=== PATIENT | male | born 1945 | race Caucasian/White ===

== ENCOUNTER 2017-11-29 22:13 | Inpatient (IN) | payer MEDICAID, MEDICARE ==
[~2017-11-29] VITALS: Ht 185.4 cm; Wt 69.9 kg
[~2017-11-29 22:13] MED LIST: ASPI-1169 PO; ATOR20TA PO; CALC500T13 PO; FOLI1TAB16 PO; HYDR-3976 PO; ISOS60TA4 PO; LEVO750T46 PO; METO25TA6 PO; MULT1TAB73 PO; PANT40TA2 PO; THIA100V2 PO
[2017-11-29] MEDS ORDERED: ASPIRIN 325 MG TABLET PO ONE (22:30)
--- NOTE | 2017-11-29 22:30 | NUR ---
PT BB SELF C/C LT HAND TO LT SIDE NUMBNESS S/P CVA X JUN 2017, GETTING WORSE X2-3 DAYS. PT ALSO STATES INTERMITTENT LT SIDE CP X 8 DAYS, SEEN AT [facility] 11/26/17 FOR SAME S/S. PT STATES INTERMITTENT CP 12/27 -N/V, -DIAPHORESIS. PT STATES CP IS PRESSURE LIKE IN QUALITY. PT NOTED TO BE TACHYCARDIC AT 124BPM. PT STATES "I AM SHORT OF BREATH. NC 3L/M APPLIED TO PT PER MD. SPO2 96% ON RA. PT SAFETY AND COMOFRT MEASURES IN PLACE. RESP EVEN AND UNLABORED. NO S/S OF ACUTE DISTRESS NOTED. MD BEDSIDE FOR EVAL.
[2017-11-29] MEDS ORDERED: NITROGLYCERIN 0.4 MG/TAB BOTTLE ONE (22:40)
[2017-11-29] MEDS ORDERED: ASPIRIN 325 MG TABLET ONE (22:40)
--- NOTE | 2017-11-29 22:44 | NUR ---
PT REFUSED NITROGLYCERINE TABS STATING "IT MAKES ME VERY ILL AND I AM ALLERGIC TO IT". PT'S REFUSAL OF MEDICATION WAS MADE AWARE TO DR COLLIER. WILL CONTINUE TO MONITOR PT.
[2017-11-29 22:46] LABS: BASOPHILS # (AUTO) 0.1 /CMM (0.0-0.2); BASOPHILS % (AUTO) 0.7 % (0.0-2.0); EOSINOPHILS % (AUTO) 4.1 % (0.0-6.0); HEMATOCRIT 44 % (39-51); HEMOGLOBIN 14.3 g/dL (13.5-17.5); LYMPHOCYTES % (AUTO) 20.4 % (20.0-44.0); MEAN CORPUSCULAR HGB CONC 33 g/dl (31.0-36.0); MEAN CORPUSCULAR VOLUME 99 fL (80-96); MONOCYTES # (AUTO) 0.8 /CMM (0.1-1.30); MONOCYTES % (AUTO) 7.8 % (2.0-12.0); NEUTROPHILS # (AUTO) 6.7 /CMM (1.8-8.9); PLATELET COUNT (AUTO) 188 /CMM (150-450); RDW COEFFICIENT OF VARIATION 14.1 (11.5-15.0); RED BLOOD CELL COUNT(AUTO) 4.43 MIL/uL (4.5-6.0)
[2017-11-29] MEDS ORDERED: NITROGLYCERIN 0.4 MG/TAB BOTTLE SL ONE (23:00)
[2017-11-29] MEDS ORDERED: hydrALAZINE HCL IV 20 MG VIAL IV ONE (23:00)
--- NOTE | 2017-11-29 23:01 | NUR ---
Patient going to Tele 119-1, admitted by OMAR Rivera, dx Chest Pain
[2017-11-29 23:02] LABS: CARBON DIOXIDE 25 mmol/L (21-32); CHLORIDE 108 mmol/L (98-107); CREATININE 1.5 mg/dL (0.6-1.3); GLUCOSE 111 mg/dL (74-106); SODIUM SERUM 141 mmol/L (136-145); UREA NITROGEN, BLOOD 14 mg/dL (7-18)
[2017-11-29 23:06] LABS: INR 0.98 (0.87-1.13)
[2017-11-29 23:10] LABS: TROPONIN I 0.075 ng/mL (0.00-0.056)
[2017-11-29 23:14] LABS: B-TYPE NATRIURETIC PEPTIDE 1319 PG/ML (0-125)
[2017-11-30] MEDS ORDERED: MAG HYDROX/AL HYDROX/SIMETH 30 ML UDC PO PRN (01:00)
[2017-11-30] MEDS ORDERED: ONDANSETRON HCL/PF 4 MG/2 ML VIAL IVP PRN (01:00)
[2017-11-30] MEDS ORDERED: MORPHINE SULFATE INJ 2 MG/ML DISP.SYRIN IV PRN (01:00)
[2017-11-30] MEDS ORDERED: HYDROCODONE/APAP 5/325MG 1 EACH TABLET PO PRN (01:00)
[2017-11-30] MEDS ORDERED: MAGNESIUM HYDROXIDE 30 ML UDC PO PRN (01:00)
[2017-11-30] MEDS ORDERED: TEMAZEPAM 15 MG CAPSULE PO PRN (01:00)
[2017-11-30] MEDS ORDERED: ACETAMINOPHEN 325 MG TABLET PO PRN (01:00)
[2017-11-30] MEDS ORDERED: NITROGLYCERIN 0.4 MG/TAB BOTTLE SL PRN (01:30)
[2017-11-30] MEDS: LORAZEPAM 1 MG TABLET PO PRN ×2 (02:06→15:11)
[2017-11-30 03:47] LABS: PHOSPHORUS 3.5 mg/dL (2.5-4.9)
--- NOTE | 2017-11-30 03:55 | NUR ---
EGG GRADER NOTES, ENDORSED PATIENT FROM [facility] ALY, FOR CONTINUATION OF CARE, PATIENT C/O PAIN AT THIS TIME, WILL ADMINISTERED MEDICATION ORDERED AND MONITOR CLOSELY.
[2017-11-30 04:00] VITALS: BP 117/85
[2017-11-30] MEDS ORDERED: MORPHINE SULFATE INJ 4 MG/ML DISP.SYRIN ONE (04:21)
--- NOTE | 2017-11-30 04:55 | NUR ---
BENEFIT DIRECTOR NOTES, CHECKED ON PATIENT AND AT THIS TIME, PATIENT STATES "IM PRETTY GOOD" NO C/O CHEST PAIN AT THIS TIME, PATIENT ASKING FOR COKE-COLA AND TO ORDER BREAKFAST AT THIS TIME, BREATHING EVEN AND UNLABORED, NO ACUTE DISTRESS NOTED AT THIS TIME, WILL CONTINUE TO MONITOR CLOSELY.
--- NOTE | 2017-11-30 06:37 | NUR ---
BOBBIN INSPECTOR NOTES, PATIENT IN BED, AWAKE ALERT AND ORIENTED, BREATHING EVEN AND UNLABORED, NO S/S OF ACUTE DISTRESS OR SOB AT THIS TIME, NO C/O PAIN AT THIS TIME, STATES THAT HE FEELS OK, IV ACCESS IN RIGHT AC INTACT AND PATENT, ALL NEEDS PROVIDED, CALL LIGHT W/I REACH, INDEPENDENT WITH REPOSITION, WILL ENDORSE CONTINUITY OF CARE TO ONCOMING NURSE.
[2017-11-30] MEDS ORDERED: PANTOPRAZOLE 40 MG TABLET.DR PO SCH ×2 (07:30→09:00)
[2017-11-30 08:00] VITALS: BP 143/85
[2017-11-30] MEDS: MULTIVITAMINS,THERAGRAN 1 UDTAB TABLET PO SCH (08:09)
[2017-11-30] MEDS: ISOSORBIDE MONONITRATE (30MG) 30 MG TAB.SR.24H PO SCH (08:10)
[2017-11-30] MEDS: METOPROLOL TARTRATE 25 MG TABLET PO SCH ×2 (08:10→16:37)
[2017-11-30] MEDS: FOLIC ACID 1 MG TABLET PO SCH (08:10)
[2017-11-30] MEDS: ASPIRIN 81 MG TAB.CHEW PO SCH (08:10)
[2017-11-30] MEDS: THIAMINE HCL 100 MG TABLET PO SCH (08:10)
[2017-11-30] MEDS: CALCIUM CARBONATE 500 MG TAB.CHEW PO SCH ×2 (08:15→16:38)
--- NOTE | 2017-11-30 08:17 | NUR ---
AT RISK SPECIALIST NOTES PATIENT IS AWAKE, A/O X4. CURRENTLY ON CARDIAC DIET, REQUESTING TO BE CHANGED TO REGULAR DIET. GOOD APPETITE. BREATHING ON ROOM AIR WITH NO SOB, SATING 98%. SINUS RHYTHM, AFIB HR 91 ON THE TELE MONITOR, DENIES CHEST PAIN. IVC IN RIGHT AC PATENT AND INTACT, FLUSHES WELL. CALL LIGHT WITHIN REACH. WILL CONT TO MONITOR.
--- NOTE | 2017-11-30 11:18 | NUR ---
PATIENT INSISTING TO HAVE REGULAR DIET FOR MEALS, EDUCATED PATIENT, RISK AND BENEFITS EXPLAINED, BUT STILL REFUSED TO FOLLOW DIET ORDERED. DR. IRIS GUTIERREZ INFORMED. CHARGE NURSE IS AWARE.
--- NOTE | 2017-11-30 11:30 | NUR ---
REVIEWED CURRENT DIET 2GM SODIUM WITH THE PATIENT AND LUNCH MENU SELECTION PROVIDED. PATIENT REFUSED TO SELECT FROM THE LUNCH MENU PROVIDED AND CHOOSE HAMBURGER WITH CHEESE PLUS REGULAR COFFEE FOR LUNCH MEAL. PATIENT IS NON COMPLIANT WITH DIET ORDERED.
[2017-11-30 12:29] VITALS: BP 115/68
[2017-11-30] MEDS ORDERED: ATOR40TA PO (14:41)
[2017-11-30] MEDS ORDERED: APIX5TAB PO (14:41)
[2017-11-30] MEDS ORDERED: CARV3.122 PO (14:41)
[2017-11-30] MEDS ORDERED: LISI-607 PO (14:41)
[2017-11-30] MEDS ORDERED: SERT50TA PO (14:41)
--- NOTE | 2017-11-30 15:00 | NUR ---
PATIENT CURRENT HOME MEDS ENTERED BY MED RECON NURSE, NOTIFIED DR. IRIS GUTIERREZ FOR REVIEW.
[2017-11-30 16:21] VITALS: BP 111/74
[2017-11-30] MEDS: PANTOPRAZOLE 40 MG TABLET.DR PO SCH (16:37)
[2017-11-30] MEDS: MORPHINE SULFATE INJ 4 MG/ML DISP.SYRIN IV PRN (17:27)
--- NOTE | 2017-11-30 18:22 | NUR ---
CONFIGURATION DEVELOPER CLOSING NOTES CONTINUE HOSPITALIZATION PER MD. PATIENT IS NON COMPLIANT WITH CURRENT DIET, MD IS AWARE. CONT ON TELE MONITOR, SINUS RHYTHM HR 83, DENIES CHEST PAIN DURING THE SHIFT. AMBULATES TO THE BATHROOM WITHOUT DIFFICULTY. EPISODE OF SEVERE HEADACHE, MANAGED BY MORPHINE IV PRN WITH RELIEF, DENIES DIZZINESS. FOR CARDIOLOGY CONSULT, ECHO AND CAROTID DUPLEX ORDERED. CALL LIGHT WITHIN REACH. WILL ENDORSE TO ONCOMING RN.
[2017-11-30 20:00] VITALS: BP 111/63
[2017-11-30] MEDS: ATORVASTATIN 10 MG TABLET PO SCH (21:41)
[2017-12-01] VITALS: BP 137/73
--- NOTE | 2017-12-01 04:00 | NUR ---
PAPER BUNDLER NOTES PT REFUSING TO HAVE VS TAKEN. EXPLAINED TO PT IMPORTANCE OF VS IN HIS POC BUT PT STILL REFUSED. PT CURSING AND KICKING PER AUTOMATIC PACKER OPERATOR. WILL CONTINUE TO MONITOR.
--- NOTE | 2017-12-01 06:00 | NUR ---
SLASHER OPERATOR NOTES PT REFUSED TO HAVE BLOOD DRAWN. PT ALSO REFUSED DAILY WEIGHT. EXPLAINED TO PT IMPORTANCE OF LABS IN HIS POC BUT PT STILL REFUSED. WILL CONTINUE TO MONITOR.
--- NOTE | 2017-12-01 06:20 | NUR ---
NURSING SPECIALIST NOTES AWAKE & RESPONSIVE. NOT IN ANY DISTRESS. NO SOB NOTED. DENIES ANY PAIN OR DISCOMFORT AT THIS TIME. ON TELE ST @ 107 WITH IV-HL PATENT & INTACT. CALL LIGHT WITHIN REACH. BED IN LOWEST POSITION. SR UP X2 FOR SAFETY. WILL ENDORSE TO NEXT SHIFT.
[2017-12-01 08:00] VITALS: BP 129/72
--- NOTE | 2017-12-01 08:00 | NUR ---
ms rn received on bed, awake,alert,oriented x4,not in any form of distress, respirations even and unlabored,no sob noted, lungs are clear,abdomen soft, positive bowel sounds, denies pain at this time, will monitor patient's condition.
[2017-12-01] MEDS: ISOSORBIDE MONONITRATE (30MG) 30 MG TAB.SR.24H PO SCH (09:00)
--- NOTE | 2017-12-01 09:00 | NUR ---
ms velarde breakfast served, due meds given,tolerated well.
[2017-12-01] MEDS: MULTIVITAMINS,THERAGRAN 1 UDTAB TABLET PO SCH (09:16)
[2017-12-01] MEDS: PANTOPRAZOLE 40 MG TABLET.DR PO SCH ×2 (09:16→17:01)
[2017-12-01] MEDS: ASPIRIN 81 MG TAB.CHEW PO SCH (09:16)
[2017-12-01] MEDS: CALCIUM CARBONATE 500 MG TAB.CHEW PO SCH ×2 (09:16→17:00)
[2017-12-01] MEDS: THIAMINE HCL 100 MG TABLET PO SCH (09:16)
[2017-12-01] MEDS: FOLIC ACID 1 MG TABLET PO SCH (09:17)
[2017-12-01 12:00] VITALS: BP 150/81
[2017-12-01 14:00] VITALS: BP 123/69
[2017-12-01 14:27] LABS: BASOPHILS # (AUTO) 0.1 /CMM (0.0-0.2); BASOPHILS % (AUTO) 0.8 % (0.0-2.0); EOSINOPHILS % (AUTO) 5.1 % (0.0-6.0); HEMATOCRIT 36 % (39-51); HEMOGLOBIN 12.1 g/dL (13.5-17.5); LYMPHOCYTES # (AUTO) 1.3 /CMM (0.8-4.8); LYMPHOCYTES % (AUTO) 21.5 % (20.0-44.0); MEAN CORPUSCULAR HGB CONC 33 g/dl (31.0-36.0); MEAN CORPUSCULAR VOLUME 98 fL (80-96); MONOCYTES # (AUTO) 0.5 /CMM (0.1-1.30); MONOCYTES % (AUTO) 7.4 % (2.0-12.0); NEUTROPHILS # (AUTO) 4.1 /CMM (1.8-8.9); NEUTROPHILS % (AUTO) 65.2 % (43.0-81.0); PLATELET COUNT (AUTO) 149 /CMM (150-450); RDW COEFFICIENT OF VARIATION 13.7 (11.5-15.0); RED BLOOD CELL COUNT(AUTO) 3.69 MIL/uL (4.5-6.0); WHITE BLOOD COUNT (AUTO) 6.3 K/uL (4.3-11.0)
[2017-12-01 14:42] LABS: CALCIUM, SERUM 8.3 mg/dL (8.5-10.1); CARBON DIOXIDE 21 mmol/L (21-32); CHLORIDE 110 mmol/L (98-107); CREATININE 0.9 mg/dL (0.6-1.3); GLUCOSE 112 mg/dL (74-106); MAGNESIUM 1.8 mg/dL (1.8-2.4); PHOSPHORUS 2.5 mg/dL (2.5-4.9); POTASSIUM 4.2 mmol/L (3.5-5.1); SODIUM SERUM 140 mmol/L (136-145); UREA NITROGEN, BLOOD 12 mg/dL (7-18)
[2017-12-01 14:46] LABS: CHOLESTEROL 81 mg/dL (<200); HDL CHOLESTEROL 40 mg/dL (40-60); LDL 38 mg/dL (0-99); TRIGLYCERIDES 57 mg/dL (30-150)
[2017-12-01 14:57] LABS: THYROID STIMULATING HORMONE 0.582 uIU/mL (0.358-3.74)
[2017-12-01 16:00] VITALS: BP_SYST 170; BP_DIAS 103; BP_DIAS 104
[2017-12-01] MEDS: RIVAROXABAN 10 MG TABLET PO SCH (17:03)
--- NOTE | 2017-12-01 17:14 | NUR ---
PATIENT REFUSED AN ECHOCARDIOGRAM AND PREFERS TO DO IT TOMORROW. HE SAID DIRECTOR PATIENT ADVISED HIM IT WILL BE DONE TOMORROW AND NOT TODAY.
--- NOTE | 2017-12-01 18:00 | NUR ---
ms rn on bed, no distress noted.
[2017-12-01] MEDS: METOPROLOL TARTRATE 25 MG TABLET PO SCH ×2 (19:13→23:39)
--- NOTE | 2017-12-01 19:20 | NUR ---
TRANSPORTATION SECURITY SCREENER NOTE RECEIVED PATIENT PLEASANT AND COOPERATIVE, AOX3, SPEECH CLEAR, RESTING WITH HOB ELEVATED, TELE ST 100, NO CARDIAC OR RESPIRATORY DISTRESS, BRP, RAC #20G SL, PATENT FLUSHING WELL, SITE CDI, SAFETY MAINTAINED AT ALL TIMES, BED IN LOW LOCKED POSITION, CALL LIGHT WITHIN REACH, WILL CONTINUE TO MONITOR FOR ANY CHANGES IN CONDITION.
[2017-12-01 20:00] VITALS: BP 154/97
[2017-12-01] MEDS: ATORVASTATIN 10 MG TABLET PO SCH (21:06)
[2017-12-02] VITALS: BP 162/97
[2017-12-02 04:00] VITALS: BP 140/70
--- NOTE | 2017-12-02 04:00 | NUR ---
ROOFER NOTE PT REFUSED 4AM VITAL SIGNS
[2017-12-02] MEDS: METOPROLOL TARTRATE 25 MG TABLET PO SCH ×3 (05:50→17:00)
[2017-12-02 08:00] VITALS: BP 102/75
[2017-12-02 08:06] LABS: BASOPHILS # (AUTO) 0.1 /CMM (0.0-0.2); BASOPHILS % (AUTO) 0.8 % (0.0-2.0); EOSINOPHILS % (AUTO) 8.1 % (0.0-6.0); HEMATOCRIT 36 % (39-51); HEMOGLOBIN 11.8 g/dL (13.5-17.5); LYMPHOCYTES # (AUTO) 2.2 /CMM (0.8-4.8); LYMPHOCYTES % (AUTO) 32.5 % (20.0-44.0); MEAN CORPUSCULAR HGB CONC 33 g/dl (31.0-36.0); MEAN CORPUSCULAR VOLUME 98 fL (80-96); MONOCYTES # (AUTO) 0.6 /CMM (0.1-1.30); MONOCYTES % (AUTO) 9.3 % (2.0-12.0); NEUTROPHILS # (AUTO) 3.4 /CMM (1.8-8.9); NEUTROPHILS % (AUTO) 49.3 % (43.0-81.0); PLATELET COUNT (AUTO) 144 /CMM (150-450); RDW COEFFICIENT OF VARIATION 13.1 (11.5-15.0); RED BLOOD CELL COUNT(AUTO) 3.62 MIL/uL (4.5-6.0); WHITE BLOOD COUNT (AUTO) 6.8 K/uL (4.3-11.0)
[2017-12-02 08:45] LABS: ALANINE AMINOTRANSFERASE 25 U/L (12-78); ALBUMIN 2.6 g/dL (3.4-5.0); ALKALINE PHOSPHATASE 104 U/L (46-116); ASPARTATE AMINOTRANSFERASE 17 U/L (15-37); BILIRUBIN,TOTAL 0.2 mg/dL (0.2-1.0); CALCIUM, SERUM 8.3 mg/dL (8.5-10.1); CARBON DIOXIDE 19 mmol/L (21-32); CHLORIDE 109 mmol/L (98-107); GLUCOSE 115 mg/dL (74-106); MAGNESIUM 1.7 mg/dL (1.8-2.4); PHOSPHORUS 3.3 mg/dL (2.5-4.9); POTASSIUM 4.4 mmol/L (3.5-5.1); SODIUM SERUM 139 mmol/L (136-145); TOTAL PROTEIN, SERUM 5.7 g/dL (6.4-8.2); UREA NITROGEN, BLOOD 13 mg/dL (7-18)
[2017-12-02] MEDS: PANTOPRAZOLE 40 MG TABLET.DR PO SCH ×2 (09:00→17:00)
[2017-12-02] MEDS: MULTIVITAMINS,THERAGRAN 1 UDTAB TABLET PO SCH (09:57)
[2017-12-02] MEDS: THIAMINE HCL 100 MG TABLET PO SCH (09:57)
[2017-12-02] MEDS: ISOSORBIDE MONONITRATE (30MG) 30 MG TAB.SR.24H PO SCH (09:58)
[2017-12-02] MEDS: CALCIUM CARBONATE 500 MG TAB.CHEW PO SCH ×2 (10:00→17:00)
[2017-12-02] MEDS ORDERED: MAGNESIUM OXIDE 400 MG TABLET PO ONE (10:00)
[2017-12-02] MEDS: ASPIRIN 81 MG TAB.CHEW PO SCH (10:00)
[2017-12-02] MEDS: FOLIC ACID 1 MG TABLET PO SCH (10:00)
[2017-12-02] MEDS: MORPHINE SULFATE INJ 4 MG/ML DISP.SYRIN IV PRN ×5 (10:13→17:33)
[2017-12-02] MEDS ORDERED: METOPROLOL TARTRATE INJ 5 MG/5 ML AMPUL ONE ×2 (10:34→11:33)
[2017-12-02] MEDS ORDERED: IOHEXOL-350 100 ML VIAL IV ONE (11:20)
[2017-12-02] MEDS ORDERED: THIA100T13 PO (11:41)
[2017-12-02] MEDS ORDERED: Nitroglycerin SL (11:41)
[2017-12-02] MEDS ORDERED: Isosorbide Mononitrate (30MG) PO (11:41)
[2017-12-02] MEDS ORDERED: CALC500T63 PO (11:41)
[2017-12-02] MEDS ORDERED: PANT40TA2 PO (11:41)
[2017-12-02] MEDS ORDERED: METO25TA20 PO (11:41)
[2017-12-02 12:00] VITALS: BP 165/84
[2017-12-02 13:00] VITALS: BP 165/84
--- NOTE | 2017-12-02 16:22 | NUR ---
PT RREFUSED 1600 VITALS TEACHING DONE PT STILL REFUSED
[2017-12-02] MEDS: RIVAROXABAN 10 MG TABLET PO SCH (17:00)
== END 2017-12-02 17:48 | DRG 280 ==
LOC: ER 22:14 → TELE1 23:06
PROVIDERS: ADMIT Nurse Practitioner Acute Care; ATTEND Nurse Practitioner Acute Care
DX: I21.A1 Myocardial infarction type 2 (principal); N17.0 Acute kidney failure with tubular necrosis; K85.90 Acute pancreatitis without necrosis or infection, unspecified; I69.354 Hemiplegia and hemiparesis following cerebral infarction affecting left non-dominant side; F32.3 Major depressive disorder, single episode, severe with psychotic features; I11.0 Hypertensive heart disease with heart failure; I50.9 Heart failure, unspecified; I48.0 Paroxysmal atrial fibrillation; E78.5 Hyperlipidemia, unspecified; Z88.0 Allergy status to penicillin; Z79.82 Long term (current) use of aspirin; Z79.899 Other long term (current) drug therapy; I70.0 Atherosclerosis of aorta; I25.10 Atherosclerotic heart disease of native coronary artery without angina pectoris; F10.21 Alcohol dependence, in remission; Z91.11 Patient's noncompliance with dietary regimen; Z87.442 Personal history of urinary calculi; Z96.649 Presence of unspecified artificial hip joint; Z87.891 Personal history of nicotine dependence
CPT/HCPCS: 36415; 70450-TC; 71045-TC; 75574; 80048-TC; 80053-TC; 80061-TC; 83735-TC; 83880; 84100-TC; 84439-TC; 84443-TC; 84484-TC; 85025-TC; 85730-TC; 87081-TC; 93307-TC; A4606; J2270; J3490; Q9967; Z7610

== ENCOUNTER 2019-06-21 06:30 | Inpatient (IN) | payer MEDICARE, OTHER ==
[~2019-06-21] VITALS: Ht 188 cm; Wt 77.1 kg
[~2019-06-21 06:30] MED LIST changes: +APIX5TAB PO; -ATOR20TA PO; +ATOR40TA PO; -CALC500T13 PO; +CALC500T63 PO; -FOLI1TAB16 PO; -HYDR-3976 PO; -ISOS60TA4 PO; +Isosorbide Mononitrate (30MG) PO; -LEVO750T46 PO; +LISI-607 PO; +METO25TA20 PO; -METO25TA6 PO; -MULT1TAB73 PO; +Nitroglycerin SL; +SERT50TA PO; +THIA100T13 PO; -THIA100V2 PO
--- NOTE | 2019-06-21 06:48 | NUR ---
PT STATES HE WAS RECENTLY DISCHARGED FROM [facility] ([place], [place]) X1 DAY AGO. PT SIGNED MEDICAL RELEASE FORM. ATTEMPTED TO CONTACT MEDICAL RECORDS TO HAVE CHART FAXED, NO ANSWER. ATTEMPTED TO CONTACT [facility]OSPITAL NURSING [facility]RECTIONAL [facility]IEUTENANT, NO ANSWER. MD MCPHERSON
--- NOTE | 2019-06-21 06:50 | NUR ---
BIBS FOR C/O CP 01/27. PER PT HE HAD A PACEMAKER PLACEMENT AT [facility] 8 DAYS AGO AND HE WAS DISCHARGED FROM THE HOSPITAL YESTERDAY. PT CAME IN WITH A RFA PIV LINE. PT WAS PLACED ON A MONITOR.
[2019-06-21 07:05] LABS: BASOPHILS # (AUTO) 0.2 /CMM (0.0-0.2); BASOPHILS % (AUTO) 2.5 % (0.0-2.0); HEMATOCRIT 38 % (39-51); HEMOGLOBIN 12.3 g/dL (13.5-17.5); LYMPHOCYTES # (AUTO) 0.9 /CMM (0.8-4.8); LYMPHOCYTES % (AUTO) 12.2 % (20.0-44.0); MEAN CORPUSCULAR HGB CONC 33 g/dl (31.0-36.0); MEAN CORPUSCULAR VOLUME 98 fL (80-96); MONOCYTES # (AUTO) 0.5 /CMM (0.1-1.30); MONOCYTES % (AUTO) 6.4 % (2.0-12.0); NEUTROPHILS # (AUTO) 5.9 /CMM (1.8-8.9); NEUTROPHILS % (AUTO) 76.9 % (43.0-81.0); PLATELET COUNT (AUTO) 234 /CMM (150-450); RED BLOOD CELL COUNT(AUTO) 3.86 MIL/uL (4.5-6.0); WHITE BLOOD COUNT (AUTO) 7.7 K/uL (4.3-11.0)
--- NOTE | 2019-06-21 07:10 | NUR ---
PT WAS PICKED UP FOR CT
[2019-06-21 07:13] LABS: CALCIUM, SERUM 8.8 mg/dL (8.5-10.1); CREATININE 0.9 mg/dL (0.6-1.3); POTASSIUM 3.8 mmol/L (3.5-5.1)
--- NOTE | 2019-06-21 07:38 | NUR ---
PATIENT BACK FROM CT. CONNECTED TO MONITOR. NO ACUTE DISTRESS NOTED AT THIS TIME. WILL CONTINUE TO MONITOR
[2019-06-21] MEDS ORDERED: ASPIRIN 325 MG TABLET ONE (08:13)
[2019-06-21] MEDS ORDERED: MORPHINE SULFATE INJ 4 MG/ML DISP.SYRIN ONE (08:13)
[2019-06-21] MEDS ORDERED: ASPIRIN 325 MG TABLET PO ONE (08:30)
[2019-06-21] MEDS ORDERED: MORPHINE SULFATE INJ 2 MG/ML DISP.SYRIN IV ONE (08:30)
--- NOTE | 2019-06-21 08:53 | NUR ---
PT ASSIGNED TO 308-2 PER NURSING HAM BONER.
--- NOTE | 2019-06-21 08:56 | NUR ---
CHANGED TO 306-2 PER DAILY RELEASE AND DUPE PRINTER.
--- NOTE | 2019-06-21 09:18 | NUR ---
REPORT GIVEN TO GAUTAM ALY FOR GILBERTO
--- NOTE | 2019-06-21 09:29 | NUR ---
PATIENT TRANSFERRED TO [facility] VIA ACLS PROTOCOL. PATIENT TOLERATED TRANSFER WELL. RECEIVING RN AT BEDSIDE. ALL BELONGINGS WITH PATIENT.
--- NOTE | 2019-06-21 09:30 | NUR ---
HEALTH EDUCATION DIRECTOR NOTES PATIENT REFUSED SKIN ASSESSMENTS.
[2019-06-21] MEDS ORDERED: ACETAMINOPHEN 325 MG TABLET PO PRN (10:00)
[2019-06-21] MEDS ORDERED: ONDANSETRON HCL/PF 4 MG/2 ML VIAL IVP PRN (10:00)
[2019-06-21] MEDS ORDERED: MAG HYDROX/AL HYDROX/SIMETH 30 ML UDC PO PRN (10:00)
[2019-06-21] MEDS ORDERED: ATORVASTATIN 10 MG TABLET PO SCH (10:00)
[2019-06-21] MEDS ORDERED: Z GUARD REMEDY 2 OZ OINT TP PRN (10:00)
[2019-06-21] MEDS ORDERED: MAGNESIUM HYDROXIDE 30 ML UDC PO PRN (10:00)
[2019-06-21] MEDS: HYDROCODONE/APAP 5/325MG 1 EACH TABLET PO PRN ×3 (10:35→20:21)
[2019-06-21] MEDS ORDERED: METOPROLOL TARTRATE 50 MG TABLET PO SCH (12:00)
[2019-06-21] MEDS ORDERED: Magnesium 1GM/D5W 100ML PREMIX 100 ML IV SCH (14:00)
[2019-06-21] MEDS ORDERED: IV NS 0.9% 1,000 ML BAG IV PRN (14:00)
[2019-06-21] MEDS ORDERED: IV NS 0.9% 1,000 ML IV PRN (14:30)
--- NOTE | 2019-06-21 14:59 | NUR ---
TELE/RN NOTE OMAR FOLEY IS MADE AWARE OF TROPONIN LEVEL AND NEW ORDER OF TROPONIN CHECK AT 1630 IS OBTAINED. THE ORDER IS READ BACK, VERIFIED. NOTED AND CARRIED OUT.
[2019-06-21 16:00] VITALS: BP 127/83
--- NOTE | 2019-06-21 16:40 | NUR ---
ASSISTANT PLANT CONTROL OPERATOR NOTES PATIENT REFUSED FOR BLOOD DRAW FOR TROPONIN. WILL ENCOURAGE AGAIN
--- NOTE | 2019-06-21 16:45 | NUR ---
TELE/RN NOTE OMAR FOLEY IS MADE AWARE THAT THE PATIENT REFUSES TROPONIN CHECK DESPITE EXPLAINING RISKS AND BENEFITS MULTIPLES TIMES. PER TOE FORMER STITCHDOWNS NO NEED TO CHECK TROPONIN TODAY ANYMORE SINCE THE PATIENT HAS SCHEDULED TROPONIN CHECK TOMORROW MORNING.
[2019-06-21] MEDS: PANTOPRAZOLE 40 MG TABLET.DR PO SCH (17:24)
[2019-06-21] MEDS: METOPROLOL TARTRATE 25 MG TABLET PO SCH (17:24)
[2019-06-21] MEDS: CALCIUM CARBONATE 500 MG TAB.CHEW PO SCH (17:24)
[2019-06-21] MEDS: APIXABAN 5 MG TABLET PO SCH (17:25)
--- NOTE | 2019-06-21 18:19 | NUR ---
STATISTICIAN CLOSING NOTES Patient in bed, A/O x3.CPATIENT WITH PEACEMAKER AT 62BEATS/MIN. NPO, IVF maintained. RIGHT FOREARM HP G 20, PATENT AND INTACT. DENIES ANY PAIN RIGHT NOW. SLEEPING COMFORTABLY. DUE ALL MEDS GIVEN. NO RESPIRATORY DISTRESS NOTED. WILL ENDORSED TO SERVICE CONTROL OPERATOR
--- NOTE | 2019-06-21 19:05 | NUR ---
MACHINE MOVER NOTES RECEIVED PT IN BED ASLEEP BUT EASILY AWOKEN VERBALLY OR BY TOUCH. PT A/O X3 AND ABLE TO MAKE NEEDS KNOWN. RESPIRATIONS EVEN AND UNLABORED WITH NO S/S OF ACUTE DISTRESS OR SOB NOTED. PT NOTED WITH PEACEMAKER AT 60 BEATS/MIN. PT WITH RIGHT FOREARM # 20, PATENT AND INTACT. PT DENIES ANY PAIN AT THIS TIME. SAFETY MEASURES IN PLACE WITH BED IN LOWEST LOCKED POSITION WITH SIDE RAILS UP X2. CALL LIGHT WITHIN REACH. WILL CONTINUE TO MONITOR.
[2019-06-21 20:00] VITALS: BP 135/71
[2019-06-21] MEDS: ATORVASTATIN 40 MG TABLET PO SCH (23:12)
[2019-06-22] VITALS: BP 141/79
[2019-06-22] MEDS: MORPHINE SULFATE INJ 2 MG/ML DISP.SYRIN IV PRN ×6 (00:07→20:44)
[2019-06-22 04:00] VITALS: BP 130/71
--- NOTE | 2019-06-22 06:38 | NUR ---
DIRECTOR OF ASSESSING NOTES PT IN BED ASLEEP BUT EASILY AWOKEN VERBALLY OR BY TOUCH. PT A/O X3 AND ABLE TO MAKE NEEDS KNOWN. RESPIRATIONS EVEN AND UNLABORED WITH NO S/S OF ACUTE DISTRESS OR SOB NOTED THROUGHOUT SHIFT. PT NOTED WITH PEACEMAKER AT 60 BEATS/MIN. PT WITH RIGHT FOREARM # 20, PATENT AND INTACT AND SL. PT DENIES ANY PAIN AT THIS TIME. SAFETY MEASURES IN PLACE WITH BED IN LOWEST LOCKED POSITION WITH SIDE RAILS UP X2. CALL LIGHT WITHIN REACH. WILL ENDORSE TO ONCOMING NURSE FOR GILBERTO.
[2019-06-22 07:16] LABS: BASOPHILS # (AUTO) 0.1 /CMM (0.0-0.2); BASOPHILS % (AUTO) 1.1 % (0.0-2.0); EOSINOPHILS % (AUTO) 7.6 % (0.0-6.0); HEMATOCRIT 34 % (39-51); HEMOGLOBIN 11.5 g/dL (13.5-17.5); LYMPHOCYTES # (AUTO) 1.9 /CMM (0.8-4.8); MEAN CORPUSCULAR HGB CONC 34 g/dl (31.0-36.0); MEAN CORPUSCULAR VOLUME 97 fL (80-96); MONOCYTES # (AUTO) 0.6 /CMM (0.1-1.30); MONOCYTES % (AUTO) 10.4 % (2.0-12.0); NEUTROPHILS # (AUTO) 2.4 /CMM (1.8-8.9); NEUTROPHILS % (AUTO) 44.9 % (43.0-81.0); PLATELET COUNT (AUTO) 181 /CMM (150-450); RED BLOOD CELL COUNT(AUTO) 3.51 MIL/uL (4.5-6.0); WHITE BLOOD COUNT (AUTO) 5.4 K/uL (4.3-11.0)
--- NOTE | 2019-06-22 07:39 | NUR ---
RN OPENING NOTES Received patient on room air, no sob noted, patient denies pain at this time. A/o x3 and has a R FA 20 gauge SL. Patient denies any chest pain or discomfort at this time. Bed at the lowest setting, call light within reach, side rails up x2.
[2019-06-22 07:46] LABS: ALBUMIN 2.5 g/dL (3.4-5.0); BILIRUBIN,TOTAL 0.3 mg/dL (0.2-1.0); CALCIUM, SERUM 8.7 mg/dL (8.5-10.1); CREATININE 0.9 mg/dL (0.6-1.3); PHOSPHORUS 2.4 mg/dL (2.5-4.9); POTASSIUM 4.5 mmol/L (3.5-5.1); TOTAL PROTEIN, SERUM 6.1 g/dL (6.4-8.2)
[2019-06-22 08:00] VITALS: BP 128/82
[2019-06-22 08:04] LABS: THYROID STIMULATING HORMONE 1.409 uIU/mL (0.358-3.74)
[2019-06-22] MEDS: NICOTINE PATCH (14MG) 14 MG PATCH.TD24 TD SCH (08:10)
[2019-06-22] MEDS: CALCIUM CARBONATE 500 MG TAB.CHEW PO SCH ×2 (08:12→16:13)
[2019-06-22] MEDS: ASPIRIN 81 MG TAB.CHEW PO SCH (08:12)
[2019-06-22] MEDS: METOPROLOL TARTRATE 25 MG TABLET PO SCH ×2 (08:12→16:09)
[2019-06-22] MEDS: LISINOPRIL (5MG) 5 MG TABLET PO SCH (08:12)
[2019-06-22] MEDS: PANTOPRAZOLE 40 MG TABLET.DR PO SCH ×2 (08:12→16:09)
[2019-06-22] MEDS: THIAMINE HCL 100 MG TABLET PO SCH (08:14)
[2019-06-22] MEDS: SERTRALINE HCL 50 MG TABLET PO SCH (08:14)
[2019-06-22] MEDS: APIXABAN 5 MG TABLET PO SCH ×2 (08:19→18:11)
[2019-06-22] MEDS ORDERED: BISACODYL (5 MG) 5 MG TABLET.DR PO ONE (09:00)
[2019-06-22] MEDS: DOCUSATE SODIUM 100 MG CAPSULE PO SCH ×2 (09:14→16:09)
[2019-06-22 12:00] VITALS: BP 127/72
--- NOTE | 2019-06-22 13:03 | NUR ---
RN NOTES CT angio refused by patient at this time. Explained to the patient about the benefits of the procedure to the patient. Patient still refused x3. Charge nurse aware.
[2019-06-22] MEDS ORDERED: K PHOS NEUTRAL 250 MG TABLET PO ONE (14:00)
[2019-06-22 17:09] VITALS: BP 115/63
--- NOTE | 2019-06-22 18:43 | NUR ---
RN CLOSING NOTES Patient remains on room air, no osb noted, a/o x4. Patient denies pain at this time. Remains ambulatory, on R fa 20 gauge SL. troponin trending down. Bed at the lowest setting, call light within reach, side rails up x2. will give report to noc rn for musa bedside.
--- NOTE | 2019-06-22 19:30 | NUR ---
MS RN OPENING NOTES PATIENT AWAKE AND RESTING IN BED. A/O X3. ON ROOM AIR. NO S/S OF ACUTE RESPIRATORY DISTRESS OR COMPLAINTS OF PAIN AT THIS TIME. IV PRESENT ON RIGHT FOREARM, SIZE 20, INTACT & PATENT, HEP LOCKED. BED LOCKED, LOW-LINDSAY'S POSITION, SIDE RAILS X2, CALL LIGHT WITHIN REACH. WILL CONTINUE TO MONITOR.
[2019-06-22] MEDS: ATORVASTATIN 40 MG TABLET PO SCH (21:43)
[2019-06-23] MEDS: MORPHINE SULFATE INJ 2 MG/ML DISP.SYRIN IV PRN ×5 (00:46→19:22)
[2019-06-23 04:00] VITALS: BP 115/68
--- NOTE | 2019-06-23 04:44 | NUR ---
MS RN NOTES PATIENT REFUSED TO HAVE EKG DONE AT THIS TIME. STATED THAT IT WAS TOO EARLY FOR TEST TO BE DONE. PATIENT REQUESTED THAT EKG BE DONE LATER.
--- NOTE | 2019-06-23 04:45 | NUR ---
PT WAS REFUSING EKG AT THIS TIME. STATED THAT IT WAS TOO EARLY AND WANTED TO GET MORE SLEEP. RN AWARE OF SITUATION.
--- NOTE | 2019-06-23 07:23 | NUR ---
MS RN NOTES PATIENT SLEEPING IN BED, EASY TO AWAKEN. A/O X3. ON ROOM AIR. NO S/S OF SOB OR COMPLAINTS OF PAIN AT THIS TIME. IV PRESENT ON RIGHT FA, SIZE 20, HEP LOCKED. BED LOCKED, SEMI-LINDSAY'S POSITION, SIDE RAILS X2, CALL LIGHT WITHIN REACH. WILL ENDORSE TO DAY SHIFT NURSE TO FOLLOW PLAN OF CARE
--- NOTE | 2019-06-23 07:27 | NUR ---
RN OPENING NOTES Patient received on room air, no sob noted, patient denies pain at this time and is a/o x3. EKG done this morning. Patient asleep at this time and is easily awakened. Bed at the lowest setting, call light within reach, side rails up x2.
[2019-06-23 08:00] VITALS: BP 124/67
[2019-06-23] MEDS: LISINOPRIL (5MG) 5 MG TABLET PO SCH (08:17)
[2019-06-23] MEDS: ASPIRIN 81 MG TAB.CHEW PO SCH (08:18)
[2019-06-23] MEDS: THIAMINE HCL 100 MG TABLET PO SCH (08:18)
[2019-06-23] MEDS: DOCUSATE SODIUM 100 MG CAPSULE PO SCH ×2 (08:18→16:27)
[2019-06-23] MEDS: CALCIUM CARBONATE 500 MG TAB.CHEW PO SCH ×2 (08:18→16:27)
[2019-06-23] MEDS: PANTOPRAZOLE 40 MG TABLET.DR PO SCH ×2 (08:18→16:27)
[2019-06-23] MEDS: METOPROLOL TARTRATE 25 MG TABLET PO SCH ×2 (08:18→16:27)
[2019-06-23] MEDS: SERTRALINE HCL 50 MG TABLET PO SCH (08:18)
[2019-06-23] MEDS: NICOTINE PATCH (14MG) 14 MG PATCH.TD24 TD SCH (08:19)
[2019-06-23] MEDS: APIXABAN 5 MG TABLET PO SCH ×2 (08:20→16:26)
--- NOTE | 2019-06-23 10:58 | NUR ---
RN NOTES Patient refused CT angio at this time. Patient has an AC 18 on his right arm. traffic signal supervisor maintenance talked to patient as well, he refused the CT angio, stating that he wants a morphine before he goes down. traffic signal supervisor maintenance explained to him the reason as to why its not beneficial for a morphine to be given before the CT angio. Patient refused 3x.
--- NOTE | 2019-06-23 18:53 | NUR ---
RN CLOSING NOTES patient remains on room air, no sob noted, patient denies pain at this time and patient is a/o x3. R FA [address] angiography today. supervisor post wave aware. R AC 18 placed as well. bed at the lowest setting, call light within reach, side rails up x2. will give report to noc rn for musa bedside.
[2019-06-23 19:30] VITALS: BP 125/90
--- NOTE | 2019-06-23 19:48 | NUR ---
MS RN NOTES PATIENT IN BED, AWAKE, ALERT AND ORIENTED X 3. BREATHING EVEN AND UNLABORED ON ROOM AIR. DENIES NO ACUTE RESPIRATORY DISTRESS, NO ACUTE PAIN. IV ON R AC #18, CLEAN DRY AND INTACT. SHOWS NO SIGNS OF REDNESS NO INFILTRATION. SAFETY PRECAUTION IN PLACE. BED IN LOWEST POSITION, LOCKED, AND CALL LIGHT KEPT WITHIN REACH. WILL CONTINUE TO MONITOR.
--- NOTE | 2019-06-23 19:50 | NUR ---
MS RN NOTES PATIENT COMPLAINING OF PAIN 01/27. GIVEN MORPHINE PRN AT 1950. WILL CONTINUE TO MONITOR.
[2019-06-23 20:00] VITALS: BP 125/90
[2019-06-23] MEDS: ATORVASTATIN 40 MG TABLET PO SCH (21:40)
[2019-06-23] MEDS: HYDROCODONE/APAP 5/325MG 1 EACH TABLET PO PRN (21:41)
--- NOTE | 2019-06-23 21:41 | NUR ---
MS RN NOTES PATIENT COMPLAINING OF PAIN 12/27. GIVEN NORCO PRN AT [phone]
--- NOTE | 2019-06-24 | NUR ---
MS RN NOTES PATIENT COMPLAINED OF PAIN STATING 810. GIVEN MORPHINE PRN AT 0000. WILL CONTINUE TO MONITOR.
[2019-06-24] MEDS: HYDROCODONE/APAP 5/325MG 1 EACH TABLET PO PRN ×5 (01:48→21:02)
--- NOTE | 2019-06-24 01:48 | NUR ---
MS RN NOTES PATIENT COMPLAINED ON PAIN 12/27. GIVEN NORCO PRN. WILL CONTINUE TO MONITOR.
--- NOTE | 2019-06-24 04:00 | NUR ---
MS RN NOTES PATIENT COMPLAINING OF PAIN 01/27. GIVEN MORPHINE PRN AT 0400. WILL CONTINUE TO MONITOR.
[2019-06-24] MEDS: MORPHINE SULFATE INJ 2 MG/ML DISP.SYRIN IV PRN ×3 (04:02→08:16)
--- NOTE | 2019-06-24 06:52 | NUR ---
MS RN NOTES PATIENT IN BED, ASLEEP, ALERT AND ORIENTED X 3. BREATHING EVEN AND UNLABORED ON ROOM AIR. DENIES NO ACUTE RESPIRATORY DISTRESS, NO ACUTE PAIN. IV ON R AC #18, CLEAN DRY AND INTACT. SHOWS NO SIGNS OF REDNESS NO INFILTRATION. ALL DUE MEDICATIONS GIVEN. PATIENT REFUSED SKIN ASSESSMENT PICTURES. SAFETY PRECAUTION IN PLACE. BED IN LOWEST POSITION, LOCKED, AND CALL LIGHT KEPT WITHIN REACH. WILL ENDORSE TO ONCOMING NURSE.
--- NOTE | 2019-06-24 07:27 | NUR ---
MS RN OPENING NOTE PATIENT IN BED RESTING COMFORTABLY. PATIENT IN NO ACUTE DISTRESS. NO SOB NOTED. PATIENT BREATHING IS EVEN AND UNLABORED. PATIENT INSTRUCTED TO USE CANE OR CALL LIGHT WHEN ASSISTING TO GO TO BATHROOM. BED ALARM IS ON. PATIENT BED IS LOCKED AND IN LOWEST POSITION. CALL LIGHT WITHIN REACH. WILL CONTINUE TO MONITOR.
[2019-06-24 08:00] VITALS: BP 139/78
--- NOTE | 2019-06-24 08:00 | NUR ---
MS RN NOTES PATIENT REFUSED BLOOD WORK FOR LABS, EDUCATED RISKS VS BENEFITS. PATIENT GOT AGITATED AND CONTINUED TO REFUSE.
[2019-06-24] MEDS: NICOTINE PATCH (14MG) 14 MG PATCH.TD24 TD SCH (08:07)
[2019-06-24] MEDS: DOCUSATE SODIUM 100 MG CAPSULE PO SCH ×2 (08:07→16:54)
[2019-06-24] MEDS: PANTOPRAZOLE 40 MG TABLET.DR PO SCH ×2 (08:07→16:59)
[2019-06-24] MEDS: CALCIUM CARBONATE 500 MG TAB.CHEW PO SCH ×3 (08:07→16:47)
[2019-06-24] MEDS: ASPIRIN 81 MG TAB.CHEW PO SCH (08:07)
[2019-06-24] MEDS: SERTRALINE HCL 50 MG TABLET PO SCH (08:08)
[2019-06-24] MEDS: LISINOPRIL (5MG) 5 MG TABLET PO SCH (08:13)
[2019-06-24] MEDS: METOPROLOL TARTRATE 25 MG TABLET PO SCH ×2 (08:14→16:59)
[2019-06-24] MEDS: APIXABAN 5 MG TABLET PO SCH ×2 (08:14→16:54)
[2019-06-24] MEDS: THIAMINE HCL 100 MG TABLET PO SCH (08:16)
--- NOTE | 2019-06-24 08:30 | NUR ---
MS RN NOTE PATIENT REFUSING CTCA. EDUCATED RISKS VS BENEFITS. SEEN AND EVALUATED BY OMAR FOLEY. PATIENT CONTINUED TO REFUSE.
--- NOTE | 2019-06-24 09:49 | NUR ---
MS RN NOTE PATIENT REFUSING BLOOD WORK LABS THIS AM AND REFUSED AGAIN FOR STAT LABS THIS AM. DR. CORONA MADE AWARE.
[2019-06-24 16:00] VITALS: BP 105/65
--- NOTE | 2019-06-24 18:44 | NUR ---
MS RN CLOSING NOTE PATIENT IN BED RESTING COMFORTABLY. PATIENT IN NO ACUTE DISTRESS. NO SOB NOTED. PATIENT BREATHING IS EVEN AND UNLABORED. PATIENT INSTRUCTED TO USE CANE OR CALL LIGHT WHEN ASSISTING TO GO TO BATHROOM. PATIENT KEPT CLEAN, DRY AND COMFORTABLE THROUGHOUT SHIFT. BED ALARM IS ON. PATIENT BED IS LOCKED AND IN LOWEST POSITION. CALL LIGHT WITHIN REACH. WILL ENDORSE CARE TO PM SHIFT FOR GILBERTO.
--- NOTE | 2019-06-24 19:22 | NUR ---
MS RN NOTES PATIENT IN BED AWAKE ALERT AND ORIENTED X 3. BREATHING EVEN AND UNLABORED ON ROOM AIR. DENIES ACUTE RESPIRATORY DISTRESS, NO ACUTE PAIN. IV ON R AC #18, CLEAN DRY AND INTACT. SHOWS NO SIGNS OF REDNESS NO INFILTRATION. SAFETY PRECAUTION IN PLACE. BED IN LOWEST POSITION, LOCKED, AND CALL LIGHT KEPT WITHIN REACH. WILL CONTINUE TO MONITOR.
[2019-06-24] MEDS: ATORVASTATIN 40 MG TABLET PO SCH (21:02)
[2019-06-25] MEDS: HYDROCODONE/APAP 5/325MG 1 EACH TABLET PO PRN ×2 (00:45→08:39)
--- NOTE | 2019-06-25 00:45 | NUR ---
MS RN NOTES PATIENT COMPLAINING OF PAIN 12/27. GIVEN NORCO PRN AT 0045. WILL CONTINUE TO MONITOR.
--- NOTE | 2019-06-25 06:46 | NUR ---
MS RN NOTES PATIENT IN BED ASLEEP ALERT AND ORIENTED X 3. BREATHING EVEN AND UNLABORED ON ROOM AIR. DENIES ACUTE RESPIRATORY DISTRESS, NO ACUTE PAIN. IV ON R AC #18, CLEAN DRY AND INTACT. SHOWS NO SIGNS OF REDNESS NO INFILTRATION. ALL DUE MEDICATIONS GIVEN. ALL NEEDS ATTENDED TO. SAFETY PRECAUTION IN PLACE. REFUSED SKIN ASSESSMENT PICTURES. REFUSED MORNING LAB DRAW. BED IN LOWEST POSITION, LOCKED, AND CALL LIGHT KEPT WITHIN REACH. WILL ENDORSE TO ONCOMING NURSE
--- NOTE | 2019-06-25 07:35 | NUR ---
M/S RN NOTES PATIENT AWAKE IN BED, ALERT AND ORIENTED X 3. NO RESPIRATORY DISTRESS, C/O PAIN ON THE CHEST OF 810, WILL ADMINISTER PAIN MED ORDERED. PATIENT ASKED IF HE STILL HAS MORPHINE, TOLD PATIENT IT WAS DISCONTINUED AND HE ONLY HAS NORCO 5/325 FOR PAIN. PATIENT WAS UPSET AND STATED, "THAT WON'T DO ANYTHING." WIRE THREADER AT BEDSIDE GETTING VITAL SIGNS AND PATIENT CALLING HER "BITCH" PATIENT'S IV ACCESS SITE INTACT AND PATENT. BED ON LOWEST LOCKED POSITION, CALL LIGHT WITHIN REACH. WILL CONTINUE TO MONITOR AND ASSESS PAIN.
[2019-06-25 08:00] VITALS: BP 129/64
[2019-06-25] MEDS: THIAMINE HCL 100 MG TABLET PO SCH (08:36)
[2019-06-25] MEDS: PANTOPRAZOLE 40 MG TABLET.DR PO SCH ×2 (08:36→16:30)
[2019-06-25] MEDS: SERTRALINE HCL 50 MG TABLET PO SCH (08:36)
[2019-06-25] MEDS: CALCIUM CARBONATE 500 MG TAB.CHEW PO SCH ×2 (08:36→16:30)
[2019-06-25] MEDS: ASPIRIN 81 MG TAB.CHEW PO SCH (08:36)
[2019-06-25] MEDS: METOPROLOL TARTRATE 25 MG TABLET PO SCH ×2 (08:37→16:30)
[2019-06-25] MEDS: LISINOPRIL (5MG) 5 MG TABLET PO SCH (08:37)
[2019-06-25] MEDS: DOCUSATE SODIUM 100 MG CAPSULE PO SCH ×2 (08:37→16:30)
[2019-06-25] MEDS: APIXABAN 5 MG TABLET PO SCH ×2 (08:44→16:32)
[2019-06-25] MEDS: NICOTINE PATCH (14MG) 14 MG PATCH.TD24 TD SCH (08:48)
--- NOTE | 2019-06-25 11:10 | NUR ---
M/S RN NOTES PATIENT REFUSED FOR BLOOD TO BE DRAWN, SECOND TIME REFUSED TODAY. EXPLAINED RISKS AND BENEFITS BUT PATIENT STILL REFUSED.
[2019-06-25] MEDS: HYDROCODONE/APAP 10/325MG 1 EA TABLET PO PRN ×3 (11:50→20:37)
[2019-06-25 16:00] VITALS: BP 130/70
--- NOTE | 2019-06-25 18:30 | NUR ---
M/S RN NOTES PATIENT REFUSED FOR BLOOD TO BE DRAWN FOR THE THIRD TIME. PATIENT GIVEN RISKS AND BENEFITS BUT PATIENT STILL REFUSED.
--- NOTE | 2019-06-25 18:50 | NUR ---
M/S RN NOTES PATIENT RESTING IN BED, NO RESPIRATORY DISTRESS, PAIN MANAGED WITH MEDICATIONS ORDERED. SKIN WARM TO TOUCH, IV ACCESS SITE INTACT AND PATENT. PATIENT'S NEEDS ATTENDED. BED ON LOWEST LOCKED POSITION, CALL LIGHT WITHIN REACH. WILL ENDORSE TO ONCOMING NURSE.
--- NOTE | 2019-06-25 19:15 | NUR ---
MS RN OPENING NOTES Received patient awake on bed. On RA, no SOB/respiratory distress noted at this time. Patient denies any discomfort. Refused to be checked for vital signs, patient is know to refused any treatment/interventions. On fall and aspiration precaution. Call light within easy reach. Will continue to monitor accordingly.
--- NOTE | 2019-06-25 20:32 | NUR ---
MS RN NOTES Patient asked for [place]. Informed patient that it is necessary to check his vital signs prior to given the [place]. At first the patient refused and got furious. Eventually, the patient agreed to have his VS checked. Administered [place] as ordered.
[2019-06-25 21:00] VITALS: BP 133/71
[2019-06-25] MEDS: ATORVASTATIN 40 MG TABLET PO SCH (21:39)
[2019-06-25] MEDS: ZOLPIDEM TARTRATE 5 MG TABLET PO PRN (21:40)
[2019-06-26] MEDS: HYDROCODONE/APAP 5/325MG 1 EACH TABLET PO PRN ×3 (04:41→13:19)
--- NOTE | 2019-06-26 06:22 | NUR ---
MS RN CLOSING NOTES Patient asleep, easily awaken on bed. On RA, no SOB/respiratory distress noted at this time. Medicated for pain, noted effective. No new unusualities noted at this time. All due meds given as ordered. All nursing needs attended. Kept on bed clean, dry and comfortable. On fall and aspiration precautions. Call light within easy reach. Endorsed to the next shift.
--- NOTE | 2019-06-26 07:38 | NUR ---
MS RN OPENING NOTES RECEIVED PATIENT IN BED, AWAKE, A/O X3. PATIENT ON ROOM AIR BREATHING WITHOUT EFFORT. NO SIGNS OF DISTRESS OR SOB NOTED AT THIS TIME. NO COMPLAINS OF PAIN AT THIS MOMENT. RAC SL # 18 PRESENT, INTACT AND PATENT. NO SIGNS OF INFILTRATION AT THE SITE. SAFETY PRECAUTIONS IN PLACE: BED IN LOW POSITION AND LOCKED, RAILS UP X 2, CALL LIGHT WITHIN REACH. WILL CONTINUE TO MONITOR PATIENT.
[2019-06-26] MEDS: DOCUSATE SODIUM 100 MG CAPSULE PO SCH ×2 (08:48→17:32)
[2019-06-26] MEDS: CALCIUM CARBONATE 500 MG TAB.CHEW PO SCH ×2 (08:48→17:00)
[2019-06-26] MEDS: APIXABAN 5 MG TABLET PO SCH ×2 (08:48→17:31)
[2019-06-26] MEDS: PANTOPRAZOLE 40 MG TABLET.DR PO SCH ×2 (08:49→17:32)
[2019-06-26] MEDS: THIAMINE HCL 100 MG TABLET PO SCH (08:49)
[2019-06-26] MEDS: SERTRALINE HCL 50 MG TABLET PO SCH (08:49)
[2019-06-26] MEDS: ASPIRIN 81 MG TAB.CHEW PO SCH (08:49)
--- NOTE | 2019-06-26 08:50 | NUR ---
MS RN NOTES PATIENT COMPLAINING OF CHEST PAIN RATED 7/10. PATIENT ASKING FOR PAIN MEDICATION. NORCO 5-325 ADMINISTERED AT 0850. WILL REASSESS AND FOLLOW UP.
[2019-06-26] MEDS: NICOTINE PATCH (14MG) 14 MG PATCH.TD24 TD SCH (09:00)
[2019-06-26] MEDS: LISINOPRIL (5MG) 5 MG TABLET PO SCH (09:03)
[2019-06-26] MEDS: METOPROLOL TARTRATE 25 MG TABLET PO SCH ×2 (09:03→17:32)
[2019-06-26] MEDS ORDERED: IBUPROFEN 400 MG TABLET PO PRN (15:30)
[2019-06-26 16:27] VITALS: BP 132/75
--- NOTE | 2019-06-26 18:23 | NUR ---
MS RN CLOSING NOTES PATIENT CURRENTLY AWAKE, A/O X 4, WATCHING TV IN NO ACUTE DISTRESS. PATIENT IS BREATHING ON ROOM AIR WITH NO SOB NOTED. PATIENT CAN VERBALIZE HIS NEEDS AND MAKE THEM KNOWN. HE GETS GRUMPY AT TIMES. PATIENT DENIES ANY PAIN AT THE MOMENT. RAC GAUGE # 18 PRESENT AND INTACT. NO SIGNS OF INFILTRATION OR REDNESS. ALL NEEDS MET. SAFETY PRECAUTIONS IN PLACE: BED IN LOW POSITION AND LOCKED, RAILS UP X2, CALL LIGHT WITHIN REACH. WILL ENDORSE TO HISTORICAL INTERPRETER NURSE.
--- NOTE | 2019-06-26 19:13 | NUR ---
MS RN OPENING NOTES Received patient A/o x3, awake on bed watching TV. On RA, no respiratory distress noted. Patient denies any discomfort at this time. Kept on bed clean, dry and comfortable. Call light within easy reach. Will continue to monitor accordingly.
--- NOTE | 2019-06-26 20:00 | NUR ---
MS RN NOTES Patient refused to be checked for VS. Patient denies any discomfort at this time. Will continue to monitor accordingly.
[2019-06-26] MEDS: ZOLPIDEM TARTRATE 5 MG TABLET PO PRN (21:08)
[2019-06-26] MEDS: ATORVASTATIN 40 MG TABLET PO SCH (21:08)
--- NOTE | 2019-06-27 06:35 | NUR ---
MS RN CLOSING NOTES Patient asleep on bed, easily awaken. On RA, no SOB/respiratory distress noted at this time. Patient denies any discomfort at this time. Kept on bed clean, dry and comfortable. On fall and aspiration precautions. Call light within easy reach. Endorsed to the next shift.
--- NOTE | 2019-06-27 07:49 | NUR ---
MS RN OPENING NOTES RECEIVED PATIENT ASLEEP, SLEEPING COMFORTABLY. PATIENT ON ROOM AIR BREATHING WITHOUT EFFORT. NO SIGNS OF DISTRESS OR SOB NOTED AT THIS TIME. NO SIGNS OF PAIN SUCH FACIAL GRIMACING OR GUARDING AT THIS MOMENT. RAC SL # 18 PRESENT, INTACT AND PATENT. NO SIGNS OF INFILTRATION AT THE SITE. SAFETY PRECAUTIONS IN PLACE: BED IN LOW POSITION AND LOCKED, RAILS UP X 2, CALL LIGHT WITHIN REACH. WILL CONTINUE TO MONITOR PATIENT.
[2019-06-27 08:00] VITALS: BP 129/66
[2019-06-27] MEDS: PANTOPRAZOLE 40 MG TABLET.DR PO SCH (09:00)
[2019-06-27] MEDS: DOCUSATE SODIUM 100 MG CAPSULE PO SCH (09:00)
[2019-06-27] MEDS: CALCIUM CARBONATE 500 MG TAB.CHEW PO SCH (09:00)
[2019-06-27] MEDS: ASPIRIN 81 MG TAB.CHEW PO SCH (09:00)
[2019-06-27] MEDS: THIAMINE HCL 100 MG TABLET PO SCH (09:00)
[2019-06-27] MEDS: SERTRALINE HCL 50 MG TABLET PO SCH (09:00)
[2019-06-27] MEDS: NICOTINE PATCH (14MG) 14 MG PATCH.TD24 TD SCH (09:00)
[2019-06-27] MEDS: APIXABAN 5 MG TABLET PO SCH (09:22)
[2019-06-27 09:23] VITALS: BP 129/66
[2019-06-27] MEDS: LISINOPRIL (5MG) 5 MG TABLET PO SCH (09:23)
[2019-06-27] MEDS: METOPROLOL TARTRATE 25 MG TABLET PO SCH (09:23)
--- NOTE | 2019-06-27 13:20 | NUR ---
RN MS NOTES PT IN BED, AWAKE, ALERT AND ORIENTED, NO COMPLAINT OF PAIN AT THIS TIME, NOT IN DISTRESS, PER PNEUMATIC SYSTEMS OPERATOR JASMIN, PT IS ACCEPTED AT [facility] AND WILL BE DISCHARGED AT 1PM, DR. ZENDEJAS INFORMED, PT INFORMED BUT WOULD LIKE TO DRIVE HIS CAR TO THE FACILITY INSTEAD OF GOING VIA AMBULANCE, PER CM, PT WILL NOT BE ADMITTED TO SNF IF HE ARRIVES BY CAR, PT INSISTED ON DRIVING HIS CAR, CM DISCUSSED SITUATION WITH PT. PER CM, THERE IS A POSSIBILITY THAT PT CAN BE ADMITTED AT [facility] WITH HIM DRIVING HIS CAR THERE, AWAITING CONFIRMATION OF PT'S ACCEPTANCE TO [facility], REQUESTED PT IF HE CAN WAIT UNTIL ACCEPTANCE IS FINALIZED AND ALSO TO PREPARE AND PRINT HIS DISCHARGE PAPERS, PT AGREES WITH CURRENT PLAN. PT WAS VISITED WITH HEALTHCARE SCIENCE SPECIALIST FROM [facility]. AFTER DISCUSSIONS WITH PNEUMATIC SYSTEMS OPERATOR AND CHARGE NURSE, PT DECIDED THAT HE WILL JUST LEAVE AMA AND IS NOT ABLE TO WAIT HE HAS MATTERS TO ATTEND TO, SAID HE IS GOING TO DRIVE AT [place], EXPLAINED TO PT THAT HE CAN ARRANGE FOR HIS CAR TO BE PICKED UP HERE AFTER BEING ADMITTED TO THE SNF, STILL REFUSED TO WAIT, DISCUSSED RISKS OF GOING AMA VS GOING TO SNF, PT STILL INSISTED TO LEAVE AMA, BELONGINGS ACCOUNTED FOR, INSTRUCTIONS GIVEN TO PT TO SEE HIS PRIMARY CARE PHYSICIAN AND TO RETURN TO [facility]. IN CASE OF EMERGENCY, VERBALIZED UNDERSTANDING, ASSISTED PT TO HOSPITAL LOBBY TO HIS PARKED CAR, DR. ZENDEJAS MADE AWARE OF PT'S LEAVING AMA.
== END 2019-06-27 13:00 | disposition left against medical advice (07) | DRG 281 ==
LOC: ER 06:33 → TELE 09:00 → MED 06-22 10:26
PROVIDERS: ADMIT Nurse Practitioner Acute Care; ATTEND Student in an Organized Health Care Education/Training Program
DX: I49.5 Sick sinus syndrome (principal); I21.A1 Myocardial infarction type 2; I69.354 Hemiplegia and hemiparesis following cerebral infarction affecting left non-dominant side; K86.0 Alcohol-induced chronic pancreatitis; E44.0 Moderate protein-calorie malnutrition; D63.8 Anemia in other chronic diseases classified elsewhere; E83.42 Hypomagnesemia; I10 Essential (primary) hypertension; I71.4 Abdominal aortic aneurysm, without rupture; F32.9 Major depressive disorder, single episode, unspecified; Z88.0 Allergy status to penicillin; Z88.8 Allergy status to other drugs, medicaments and biological substances; Z79.82 Long term (current) use of aspirin; Z79.899 Other long term (current) drug therapy; F17.290 Nicotine dependence, other tobacco product, uncomplicated; F10.21 Alcohol dependence, in remission; G93.89 Other specified disorders of brain; Z79.01 Long term (current) use of anticoagulants; Z95.0 Presence of cardiac pacemaker; Z87.442 Personal history of urinary calculi; Z96.649 Presence of unspecified artificial hip joint; Z91.81 History of falling; E86.1 Hypovolemia; Z76.5 Malingerer [conscious simulation]
CPT/HCPCS: 36415; 70450-TC; 71045-TC; 80048-TC; 80053-TC; 80061-TC; 83735-TC; 84100-TC; 84443-TC; 84484-TC; 85025-TC; 85730-TC; 87081-TC; G0378; J2270; J3475; J7050

== ENCOUNTER 2019-07-14 12:49 | Inpatient (IN) | payer MEDICARE, OTHER ==
[~2019-07-14] VITALS: Ht 185.4 cm; Wt 58.2 kg
--- NOTE | 2019-07-14 12:55 | NUR ---
BIB SELF FROM HOME, C/O SHARP CHEST PAIN RADIATING TO BACK, 10 PS, S/P PACEMAKER 3WEEKS AGO. TO ER BED 10, HOOKED TO HYDRATE THICKENER OPERATOR, CHANGED TO HOSP GOWN, WARM BLANKET PROVIDED. AWAITING MD THAYER.
--- NOTE | 2019-07-14 12:56 | NUR ---
DR AYALA AT BEDSIDE
[2019-07-14 13:11] LABS: BASOPHILS % (AUTO) 0.9 % (0.0-2.0); EOSINOPHILS % (AUTO) 2.4 % (0.0-6.0); HEMATOCRIT 34 % (39-51); HEMOGLOBIN 11.4 g/dL (13.5-17.5); LYMPHOCYTES # (AUTO) 0.9 /CMM (0.8-4.8); LYMPHOCYTES % (AUTO) 15.1 % (20.0-44.0); MEAN CORPUSCULAR HGB CONC 33 g/dl (31.0-36.0); MEAN CORPUSCULAR VOLUME 99 fL (80-96); MONOCYTES # (AUTO) 0.5 /CMM (0.1-1.30); MONOCYTES % (AUTO) 8.7 % (2.0-12.0); NEUTROPHILS # (AUTO) 4.1 /CMM (1.8-8.9); NEUTROPHILS % (AUTO) 72.9 % (43.0-81.0); PLATELET COUNT (AUTO) 146 /CMM (150-450); RED BLOOD CELL COUNT(AUTO) 3.47 MIL/uL (4.5-6.0); WHITE BLOOD COUNT (AUTO) 5.6 K/uL (4.3-11.0)
[2019-07-14 13:19] LABS: CALCIUM, SERUM 8.6 mg/dL (8.5-10.1); CREATININE 1.2 mg/dL (0.6-1.3); POTASSIUM 3.6 mmol/L (3.5-5.1)
--- NOTE | 2019-07-14 13:30 | NUR ---
WHEELED OUT VIA [facility] FOR CTA
[2019-07-14] MEDS ORDERED: IOHEXOL-350 100 ML VIAL IV ONE (13:47)
[2019-07-14] MEDS ORDERED: IV NS 0.9% 250 ML IV ONE (13:47)
[2019-07-14] MEDS ORDERED: CT SWABBABLE VALVE TRANS SET 1 EA INFUS.SET MC ONE (13:47)
[2019-07-14] MEDS ORDERED: CALC500T13 PO (13:50)
[2019-07-14] MEDS ORDERED: METO25TA4 PO (13:50)
[2019-07-14] MEDS ORDERED: AMIO200T4 PO (13:50)
[2019-07-14] MEDS ORDERED: NITR0.4T48 SL (13:50)
[2019-07-14] MEDS ORDERED: LORA-258 PO (13:50)
[2019-07-14] MEDS ORDERED: THIA100T74 PO (13:51)
[2019-07-14] MEDS ORDERED: ISOS30TA6 PO (13:51)
--- NOTE | 2019-07-14 14:44 | NUR ---
CALLED NURSING SUP FOR TELE BED.
--- NOTE | 2019-07-14 15:12 | NUR ---
OMAR WISE AT BEDSIDE
[2019-07-14] MEDS ORDERED: MORPHINE SULFATE INJ 4 MG/ML DISP.SYRIN ONE (15:15)
[2019-07-14] MEDS ORDERED: ONDANSETRON HCL/PF 4 MG/2 ML VIAL ONE (15:15)
[2019-07-14] MEDS ORDERED: ONDANSETRON HCL/PF - ER 4 MG/2 ML VIAL IV ONE (15:30)
[2019-07-14] MEDS ORDERED: ASPIRIN 81 MG TAB.CHEW PO ONE (15:30)
[2019-07-14] MEDS ORDERED: MORPHINE SULFATE INJ 2 MG/ML DISP.SYRIN IV ONE (15:30)
[2019-07-14 16:00] VITALS: BP 133/80
--- NOTE | 2019-07-14 16:16 | NUR ---
report given to Elidia of TELE unit
[2019-07-14] MEDS ORDERED: ASPIRIN 81 MG TAB.CHEW ONE (16:20)
--- NOTE | 2019-07-14 16:25 | NUR ---
TRANSFERRED TO TELE UNIT WITH TECH
[2019-07-14 16:30] VITALS: BP 133/80
[2019-07-14] MEDS ORDERED: MORPHINE SULFATE INJ 2 MG/ML DISP.SYRIN IV PRN (16:30)
[2019-07-14] MEDS ORDERED: HYDROCODONE/APAP 5/325MG 1 EACH TABLET PO PRN (16:30)
[2019-07-14] MEDS ORDERED: AMIODARONE HCL 200 MG TABLET PO SCH (16:30)
[2019-07-14] MEDS ORDERED: SERTRALINE HCL 50 MG TABLET PO SCH (16:30)
[2019-07-14] MEDS ORDERED: MAGNESIUM HYDROXIDE 30 ML UDC PO PRN ×2 (16:30→16:45)
[2019-07-14] MEDS ORDERED: ACETAMINOPHEN 325 MG TABLET PO PRN ×2 (16:30→16:45)
[2019-07-14] MEDS ORDERED: MAG HYDROX/AL HYDROX/SIMETH 30 ML UDC PO PRN ×2 (16:30→16:45)
[2019-07-14] MEDS ORDERED: ONDANSETRON HCL/PF 4 MG/2 ML VIAL IVP PRN ×2 (16:30→16:45)
[2019-07-14] MEDS ORDERED: LISINOPRIL (5MG) 5 MG TABLET PO SCH (16:30)
[2019-07-14] MEDS ORDERED: CALCIUM CARBONATE 500 MG TAB.CHEW PO PRN ×2 (16:30→16:45)
[2019-07-14] MEDS ORDERED: TEMAZEPAM 15 MG CAPSULE PO PRN ×2 (16:30→22:00)
[2019-07-14] MEDS ORDERED: ISOSORBIDE MONONITRATE (30MG) 30 MG TAB.SR.24H PO SCH (16:30)
[2019-07-14] MEDS ORDERED: THIAMINE HCL 100 MG TABLET PO SCH ×2 (16:30)
[2019-07-14] MEDS ORDERED: ASPIRIN 81 MG TAB.CHEW PO SCH (16:30)
[2019-07-14 16:35] VITALS: BP 133/80
[2019-07-14] MEDS ORDERED: MORPHINE SULFATE INJ 4 MG/ML DISP.SYRIN IV PRN (16:45)
[2019-07-14] MEDS ORDERED: APIXABAN 5 MG TABLET PO SCH (17:00)
--- NOTE | 2019-07-14 17:45 | NUR ---
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 PT A/O X3-4, AMBULATORY. PT TOLERATING RA, WITH NO ACUTE RESPIRATORY DISTRESS. VS TAKEN AND RECORDED. PT STATED PAIN OF 8/10, ER NURSE REMINDED PT HE HAD MORPHINE IV, I/RN ASSURED PT THAT PAIN MEDICINE WILL BE GIVEN SOON ORDER PLACED. PT ALSO PREFERS MORPHINE IV ONLY FOR PAIN, PT APPEARS COMFORTABLE, ABLE TO WALK WITH STEADY GAIT, WITH HIM CLAIMING HAVING 8 OUT OF 10 PAIN. PT REFUSED SKIN ASSESSMENT, RN EXPLAINED UNIT PROTOCOL, PT INSISTED TO REFUSE. PT HAS OWN CANE AT BEDSIDE WELL. PIV TO RAC G18, FLUSHED WITH NS, INTACT AND OPERATIONAL. PT ABLE TO PROVIDE HISTORY. PT KEPT COMFORTABLE IN BED. CALL LIGHT AND FLUID KEPT WITHIN REACH. PT'S BED IN LOWEST, LOCKED POSITION WITH SR X3. WILL CONTINUE PLAN OF CARE.
[2019-07-14] MEDS: ATORVASTATIN 40 MG TABLET PO SCH (17:50)
[2019-07-14] MEDS: HYDROCODONE/APAP 5/325MG 1 EACH TABLET PO PRN ×2 (17:50→20:52)
--- NOTE | 2019-07-14 17:50 | NUR ---
TELE MONITORING WITH SR 85 WITH EPISODES OF FIRST DEGREE AV BLOCK. WILL CONITNUE MONITOR.
--- NOTE | 2019-07-14 17:52 | NUR ---
SILO WORKER NOTES CALLED PHARMACY AND SPOKE TO GABRIEL TO VERIFY METOPROLOL ORDER. AWAITING FOR VERIFICATION.
[2019-07-14] MEDS ORDERED: ATORVASTATIN 40 MG TABLET PO SCH (18:00)
[2019-07-14] MEDS ORDERED: METOPROLOL TARTRATE 50 MG TABLET PO SCH (18:00)
[2019-07-14] MEDS: APIXABAN 5 MG TABLET PO SCH (18:14)
[2019-07-14] MEDS: LISINOPRIL (5MG) 5 MG TABLET PO SCH (18:15)
[2019-07-14] MEDS: ISOSORBIDE MONONITRATE (30MG) 30 MG TAB.SR.24H PO SCH (18:15)
[2019-07-14] MEDS: AMIODARONE HCL 200 MG TABLET PO SCH (18:16)
[2019-07-14] MEDS: METOPROLOL TARTRATE 50 MG TABLET PO SCH (18:16)
--- NOTE | 2019-07-14 18:37 | NUR ---
SINGEING TORCH OPERATOR CLOSING NOTES PT REMAINS IN BED. PT A/O X3-4, AMBULATORY. PT TOLERATING RA, WITH NO ACUTE RESPIRATORY DISTRESS. PT DENIES PAIN OR ANY DISCOMFORT AT THIS TIME. ON TELE MONITORING WITH SR 87 WITH EPISODES OF FIRST DEGREE AV BLOCK. PIV TO RAC G18, FLUSHED WITH NS, INTACT AND OPERATIONAL. PT ABLE TO PROVIDE HISTORY. PT KEPT COMFORTABLE IN BED. ALL NEEDS AND CARE ATTENDED. CALL LIGHT AND FLUID KEPT WITHIN REACH. PT'S BED IN LOWEST, LOCKED POSITION WITH SR X3. WILL ENDORSE TO INCOMING PERIOPERATIVE NURSE NURSE FOR GILBERTO.
[2019-07-14 20:00] VITALS: BP 109/68
--- NOTE | 2019-07-14 20:05 | NUR ---
Recieved alert and orientated smiling moving all extremities speech clear watching TV call light within reach made aware he needs to call when getting OOB for safety
[2019-07-14 20:43] VITALS: BP 109/68
[2019-07-15] VITALS: BP 96/57
[2019-07-15 01:47] VITALS: BP 96/51
[2019-07-15] MEDS: HYDROCODONE/APAP 5/325MG 1 EACH TABLET PO PRN ×5 (03:24→21:38)
[2019-07-15 05:47] VITALS: BP 109/59
[2019-07-15 05:50] VITALS: BP 104/59
[2019-07-15] MEDS: METOPROLOL TARTRATE 50 MG TABLET PO SCH ×5 (05:50→23:11)
--- NOTE | 2019-07-15 06:53 | NUR ---
Ending Notes: alert and orientated X4. Noted behavior like when nurse explains something to him eith he is not listening or ignoring, because he'll ask question repeatily, or panic if IV tape coming off, he want eveything done instantily, he cannot wait . When he uses the call light he'll want a nurse to come in right away. He refused his AM Lab. He refused midnight B/P, I had to talk him into it. medicated with [place] X2 and effective.
[2019-07-15] MEDS: PANTOPRAZOLE 40 MG TABLET.DR PO SCH (07:30)
[2019-07-15] MEDS ORDERED: PANTOPRAZOLE 40 MG TABLET.DR PO SCH (07:30)
[2019-07-15] MEDS ORDERED: THIAMINE HCL 100 MG TABLET PO SCH (09:00)
[2019-07-15] MEDS: ASPIRIN 81 MG TAB.CHEW PO SCH (09:34)
[2019-07-15] MEDS: THIAMINE HCL 100 MG TABLET PO SCH (09:35)
[2019-07-15] MEDS: ISOSORBIDE MONONITRATE (30MG) 30 MG TAB.SR.24H PO SCH (09:35)
[2019-07-15] MEDS: AMIODARONE HCL 200 MG TABLET PO SCH (09:35)
[2019-07-15] MEDS: LISINOPRIL (5MG) 5 MG TABLET PO SCH (09:36)
[2019-07-15] MEDS: SERTRALINE HCL 50 MG TABLET PO SCH (09:36)
[2019-07-15] MEDS: APIXABAN 5 MG TABLET PO SCH ×2 (09:39→17:37)
--- NOTE | 2019-07-15 13:56 | NUR ---
PT RESTING AND WANTS TO DEFER ECHO EXAM.
--- NOTE | 2019-07-15 15:03 | NUR ---
PATIENT REFUSED AN ECHOCARDIOGRAM. INFORMED RN. PER RN, TRY TOMORROW.
[2019-07-15 16:00] VITALS: BP 132/75
[2019-07-15] MEDS: ATORVASTATIN 40 MG TABLET PO SCH (17:36)
--- NOTE | 2019-07-15 18:51 | NUR ---
MS/RN NOTE THE PATIENT IS ALERT AND ORIENTED X4. IN ROOM AIR AND SATURATION IS AT 97%. DENIES SOB. RESPIRATION REGULAR AND UNLABORED. DENIES PAIN. THE PATIENT IS IN NO APPARENT DISTRESS. RAC G 18 PATENT AND SALINE LOCKED. BED LOW AND LOCKED. SIDE RAILS UP X3. CALL LIGHT WITHIN REACH. WILL ENDORSE TO SPRAY FOAM INSTALLER.
--- NOTE | 2019-07-15 20:02 | NUR ---
MS RN NOTES PATIENT IN BED, AWAKE, ALERT AND ORIENTED X 4. BREATHING EVEN AND UNLABORED ON 2L NC. SHOWS NO SIGNS OF ACUTE RESPIRATORY DISTRESS, NO ACUTE PAIN. IV ON RAC #18G, SHOWS NO SIGNS OF INFILTRATION, NO REDNESS. CLEAN DRY AND INTACT. SAFETY PRECAUTIONS IN PLACE. BED IN LOWEST POSITION, LOCKED, AND CALL LIGHT KEPT WITHIN REACH. WILL CONTINUE TO MONITOR.
[2019-07-15 23:00] VITALS: BP 141/73
[2019-07-16] MEDS: METOPROLOL TARTRATE 50 MG TABLET PO SCH ×2 (05:08→12:58)
[2019-07-16] MEDS: HYDROCODONE/APAP 5/325MG 1 EACH TABLET PO PRN ×3 (05:08→12:58)
--- NOTE | 2019-07-16 06:37 | NUR ---
MS RN NOTES PATIENT IN BED, ASLEEP, ALERT AND ORIENTED X 4. BREATHING EVEN AND UNLABORED ON 2L NC. SHOWS NO SIGNS OF ACUTE RESPIRATORY DISTRESS, NO ACUTE PAIN. IV ON RAC #18G, SHOWS NO SIGNS OF INFILTRATION, NO REDNESS. CLEAN DRY AND INTACT. ALL DUE MEDICATIONS GIVEN. SAFETY PRECAUTIONS IN PLACE. BED IN LOWEST POSITION, LOCKED, AND CALL LIGHT KEPT WITHIN REACH. WILL ENDORSE TO ONCOMING NURSE.
--- NOTE | 2019-07-16 07:30 | NUR ---
MS/RN Opening Note Patient received AO x 4, able to responds all stimuli. Pt does no appears pain or any discomfort, respiratory even and unlabored in room air. Skin is warm to touch, intact IV site. Refused take vital sign in this morning. Kept lower position of bed with elevated HOB, side rail up x 2. Call light within reach, will continue to monitor.
[2019-07-16] MEDS: PANTOPRAZOLE 40 MG TABLET.DR PO SCH (07:54)
[2019-07-16] MEDS: THIAMINE HCL 100 MG TABLET PO SCH (09:07)
[2019-07-16] MEDS: ISOSORBIDE MONONITRATE (30MG) 30 MG TAB.SR.24H PO SCH (09:08)
[2019-07-16] MEDS: AMIODARONE HCL 200 MG TABLET PO SCH (09:08)
[2019-07-16] MEDS: SERTRALINE HCL 50 MG TABLET PO SCH (09:09)
[2019-07-16] MEDS: ASPIRIN 81 MG TAB.CHEW PO SCH (09:09)
[2019-07-16] MEDS: LISINOPRIL (5MG) 5 MG TABLET PO SCH (09:10)
[2019-07-16] MEDS: APIXABAN 5 MG TABLET PO SCH (09:13)
[2019-07-16 12:58] VITALS: BP 130/79
--- NOTE | 2019-07-16 13:35 | NUR ---
JOEL accompanied outsole caser Ayah to pt's room for discharge planning. JOEL and Ayah met with the pt. bedside. Pt. is alert and oriented x 4. Pt. was informed he has been medically cleared by OMAR Patricio for discharge. Pt. stated, he will get in his car and go to [place]. Pt's car is parked outside at [facility]. No other social service needs are requested at this time. INVESTIGATIVE REPORTER is available, if needed.
--- NOTE | 2019-07-16 13:45 | NUR ---
Patient want AMA but refused sign on AMA form. Patient verbally understand significant consequences involved in leaving the hospital. IV site removed before patient leave. Pt left room accompanied by staff to the patient's private car. ALUMNI RELATIONS COORDINATOR/Sheng Rivera, Charge Nurse, and Chief Learning Officer made aware.
--- NOTE | 2019-07-16 13:45 | NUR ---
Patient refused sign AMA and left facility safely accompanied by staff to the patient private car. Pt verbally understand significant consequences without sign and leaves. All pt belongings taken with pt. Addendum: 07/16/19 at 1544 by LUCA SALINAS RN error
== END 2019-07-16 13:24 | disposition left against medical advice (07) | DRG 292 ==
LOC: ER 12:49 → TELE 17:14 → MED 07-15 09:36
PROVIDERS: ADMIT Nurse Practitioner Acute Care; ATTEND Nurse Practitioner Acute Care
DX: I11.0 Hypertensive heart disease with heart failure (principal); K86.0 Alcohol-induced chronic pancreatitis; R07.9 Chest pain, unspecified; I50.33 Acute on chronic diastolic (congestive) heart failure; E78.5 Hyperlipidemia, unspecified; D53.9 Nutritional anemia, unspecified; Z59.0 Homelessness; Z86.73 Personal history of transient ischemic attack (TIA), and cerebral infarction without residual deficits; I70.90 Unspecified atherosclerosis; Z95.0 Presence of cardiac pacemaker; Z96.649 Presence of unspecified artificial hip joint; I71.2 Thoracic aortic aneurysm, without rupture; Z87.891 Personal history of nicotine dependence; Z88.0 Allergy status to penicillin; I49.5 Sick sinus syndrome
CPT/HCPCS: 36415; 71045-TC; 80048-TC; 83880; 84484-TC; 85025-TC; 85730-TC; 87081-TC; 97116-TC; 97530-TC; G0378; J2270; J2405; J7050; Q9967

== ENCOUNTER 2021-11-20 18:19 | Inpatient (IN) | payer MEDICARE, OTHER ==
[~2021-11-20] VITALS: Ht 188 cm; Wt 59.4 kg
[~2021-11-20 18:19] MED LIST changes: +AMIO200T5 PO; +CALC500T13 PO; -CALC500T63 PO; +ISOS30TA86 PO; -Isosorbide Mononitrate (30MG) PO; -LISI-607 PO; +LISI-768 PO; +LORA-258 PO; -METO25TA20 PO; +METO25TA4 PO; +NITR0.4T48 SL; -Nitroglycerin SL; -PANT40TA2 PO; -THIA100T13 PO; +THIA100T74 PO
--- NOTE | 2021-11-20 18:22 | NUR ---
TO ER BED 8, BIBS C/O CHEST PAIN SINCE YESTERDAY, AAOX3, BREATHING EVEN AND NON LABORED, CONNECTED TO MONITOR, AWAITING MD THAYER
[2021-11-20] MEDS ORDERED: ASPIRIN 81 MG TAB.CHEW PO ONE (18:30)
--- NOTE | 2021-11-20 19:07 | NUR ---
COVID SWAB DONE AND SENT TO LAB
--- NOTE | 2021-11-20 19:21 | NUR ---
saline lock established, blood drawn and sent to lab
[2021-11-20] MEDS ORDERED: ASPIRIN 81 MG TAB.CHEW ONE (19:23)
[2021-11-20 20:12] LABS: BASOPHILS % (AUTO) 0.4 % (0.0-2.0); CALCIUM, SERUM 8.6 mg/dL (8.5-10.1); CARBON DIOXIDE 25 mmol/L (21-32); CHLORIDE 105 mmol/L (98-107); EOSINOPHILS % (AUTO) 0.5 % (0.0-6.0); GLUCOSE 116 mg/dL (74-106); HEMATOCRIT 36 % (39-51); HEMOGLOBIN 12.3 g/dL (13.5-17.5); LYMPHOCYTES # (AUTO) 0.8 K/uL (0.8-4.8); LYMPHOCYTES % (AUTO) 9.6 % (20.0-44.0); MEAN CORPUSCULAR HGB CONC 34 g/dl (31.0-36.0); MEAN CORPUSCULAR VOLUME 95 fL (80-96); MONOCYTES # (AUTO) 0.9 K/uL (0.1-1.30); MONOCYTES % (AUTO) 10.3 % (2.0-12.0); NEUTROPHILS # (AUTO) 6.9 K/uL (1.8-8.9); NEUTROPHILS % (AUTO) 79.2 % (43.0-81.0); PLATELET COUNT (AUTO) 167 K/uL (150-450); POTASSIUM 4.6 mmol/L (3.5-5.1); RED BLOOD CELL COUNT(AUTO) 3.81 MIL/uL (4.5-6.0); SODIUM SERUM 138 mmol/L (136-145); UREA NITROGEN, BLOOD 10 mg/dL (7-18); WHITE BLOOD COUNT (AUTO) 8.7 K/uL (4.3-11.0)
--- NOTE | 2021-11-20 20:26 | NUR ---
CRITICAL : TROPONIN 88.7
--- NOTE | 2021-11-20 20:36 | NUR ---
PT REFUSED BLOOD DRAW FOR TROPONIN
--- NOTE | 2021-11-20 20:47 | NUR ---
EPIC PANEL PAGED
--- NOTE | 2021-11-20 20:49 | NUR ---
PAGED EPIC FOR PANEL CALL ER BED 8 AND ER BED 10
--- NOTE | 2021-11-20 21:37 | NUR ---
REPORT GIVEN TO ABHI ALY FOR GILBERTO
--- NOTE | 2021-11-20 22:01 | NUR ---
PT TRANSFERRED UNDER ACLS
--- NOTE | 2021-11-20 22:37 | NUR ---
IT ADMINISTRATOR NOTE pt arrived to unit via gurney pt was able to transferred to bed with the use of personal walker pt steady with walker.pt a/ox4 able to make needs known. pt in no pain or discomfort at this time. pt noted with iv access on the keron #20g patent intact. pt noted with bilateral arm discoloration attempted to take photos and do a skin assessment pt stated " i don't want you taking pictures its my privacy just write in your little note that i said i don't have any wounds' risk and benefits explained x3 refused x3. pt refused lab draw risk and benefits x3 explained pt stated" you are not getting anymore blood out of me anymore you got all the blood earlier i don't care what you say .....don't just stand there i said no get out i already said no !!'. pt orientated to unit and room call light within reach. table within reach. belongings checked. bilateral side rails up for safety awaiting admitting orders on barry Stephenson made aware of pts arrival to unit. Addendum: 11/20/21 at 2309 by DASHAWN REYNA RN explained to pt his troponin is elevated and by drawing labs its the only way we can see if his heart is doing okay pt stated " i don't want to know how mt heart is doing why aren't you listening to me now leave !"
[2021-11-20] MEDS ORDERED: ONDANSETRON HCL/PF 4 MG/2 ML VIAL IVP PRN (23:00)
[2021-11-20] MEDS ORDERED: MAG HYDROX/AL HYDROX/SIMETH 30 ML UDC PO PRN (23:00)
[2021-11-20] MEDS ORDERED: MAGNESIUM HYDROXIDE 30 ML UDC PO PRN (23:00)
[2021-11-20] MEDS ORDERED: Z GUARD REMEDY 4 OZ OINT TP PRN (23:00)
[2021-11-20 23:23] VITALS: BP 150/84
--- NOTE | 2021-11-20 23:33 | NUR ---
RN NOTES PT IS NOW REFUSING VS ASSESSMENT EXPLAINED TO PT WHY IS NECCESSARY TO CHECK VITAL SIGNS EVERY Q4HRS PT STATED " I ALREADY LET YOU CHECK IT ONCE I DON'T SEE WHY IT NEEDS TO BE CHECKED OVER AND OVER AGAIN I JUST WANT TO SLEEP LEAVE ME ALONE I DON'T WANT I ALREADY TOLD THE OTHER ELIO TOO I DON'T KNOW WHY HE SENT YOU IN HERE IM NOT GOING TO CHANGE MY ANSWER" RISK AND BENEFITS EXPLAINED REFUSE X3. WILL CONTINUE TO MONITOR.
[2021-11-21] MEDS ORDERED: CALCIUM CARBONATE 500 MG TAB.CHEW PO PRN (01:30)
[2021-11-21] MEDS ORDERED: NITROGLYCERIN 0.4 MG/TAB BOTTLE SL PRN (01:30)
--- NOTE | 2021-11-21 04:23 | NUR ---
RN NOTES pt refused 0400 vital signs the moment we walked in the room pt said " no i don't want to get out" risk and benefits explained x3 refused x3 doc davi is aware pt is refusing vs and lab draw. will continue to monitor.
--- NOTE | 2021-11-21 05:30 | NUR ---
rn notes pt refused labs x3 risk and benefits explained x3.
--- NOTE | 2021-11-21 06:30 | NUR ---
MAP PLOTTER NOTES PT CONTINUOUS TO REFUSE ALL CARE. CHARGE NURSE AWARE DR ZENDEJAS AWARE.DESPITE EXPLANATION OF NEED FOR LABS AND VS PT STILL REFUSES. PT ASLEEP IN BED ABLE TO MAKE NEEDS KNOWN. CALL LIGHT WITHIN REACH TABLE WITHIN REACH. PT ON TELE MONITO READING SR IN THE 90S. WILL ENDORSE CARE TO DAY SHIFT NURSE.
[2021-11-21 08:00] VITALS: BP 121/63
--- NOTE | 2021-11-21 08:00 | NUR ---
pt.removed hep lock and tele box.
[2021-11-21] MEDS: APIXABAN 5 MG TABLET PO SCH ×2 (09:33→21:12)
[2021-11-21] MEDS: ASPIRIN 81 MG TAB.CHEW PO SCH (09:34)
[2021-11-21] MEDS: ACETAMINOPHEN 325 MG TABLET PO PRN (09:34)
[2021-11-21] MEDS: AMIODARONE HCL 200 MG TABLET PO SCH (09:35)
[2021-11-21] MEDS: THIAMINE HCL 100 MG TABLET PO SCH (09:35)
[2021-11-21] MEDS: SERTRALINE HCL 50 MG TABLET PO SCH (09:35)
[2021-11-21] MEDS: METOPROLOL SUCCINATE 25 MG TAB.SR.24H PO SCH (09:36)
[2021-11-21] MEDS: PANTOPRAZOLE 40 MG TABLET.DR PO SCH (09:37)
[2021-11-21] MEDS: LISINOPRIL (5MG) 5 MG TABLET PO SCH (12:32)
[2021-11-21 12:43] VITALS: BP 119/71
[2021-11-21] MEDS: HYDROCODONE/APAP 5/325MG TABLET PO PRN ×2 (12:43→18:30)
--- NOTE | 2021-11-21 12:44 | NUR ---
dr. parker here justin ordered and given to pt. for lt hip and thigh pain. informed pt. removed tele and hep lock.
[2021-11-21] MEDS: LORAZEPAM 0.5 MG TABLET PO PRN ×2 (14:20→20:03)
--- NOTE | 2021-11-21 15:11 | NUR ---
medicated pt. with ativan as very anxious.called dr. parker as pt states he needs more norco.no additional med ordered.
--- NOTE | 2021-11-21 15:14 | NUR ---
additionally aware pt. refusing labs and tests.
[2021-11-21 16:32] VITALS: BP 130/80
--- NOTE | 2021-11-21 16:39 | NUR ---
resting quietly at this time.
[2021-11-21] MEDS: ISOSORBIDE MONONITRATE (30MG) 30 MG TAB.SR.24H PO SCH (18:15)
[2021-11-21] MEDS: ATORVASTATIN 40 MG TABLET PO SCH (18:16)
--- NOTE | 2021-11-21 19:57 | NUR ---
RN OPENING NOTE PATIENT AWAKE IN BED. A/OX4. NO S/S OF DISTRESS, BREATHING W/O DIFFICULTY ON ROOM AIR. CARMEL #20 SL INTACT AND PATENT. PATIENT IS STILL REFUSING TELE MONITOR ALONG W/ OTHER PARTS OF HIS TREATMENT PLAN. SAFETY MEASURES IN PLACE: BED LOCKED, AT LOWEST POSITION, RAILS UP X3, CALL BURNS WITHIN REACH. WILL CONTINUE TO MONITOR PATIENT.
[2021-11-21] MEDS: ZOLPIDEM TARTRATE 5 MG TABLET PO PRN (22:03)
[2021-11-22 00:03] VITALS: BP 106/68
--- NOTE | 2021-11-22 00:05 | NUR ---
RN NOTE PATIENT HAS BEEN ATTEMPTING TO MEET THIS RN ASSISTED W/ COMPLIANCE. HE HAS TAKEN SOME OF HIS MEDS, AND RESPONDS IN A POSITIVE MANNER TO RN. PATIENT HAD BEEN REFUSING VS, BUT RN WAS ABLE TO GET PATIENT TO AT LEAST GET ONE READING (0000). PATIENT STILL REFUSES TELE MONITOR, BUT GOAL IS TO HAVE PATIENT COMPLIANT W/ TELE MONITOR BY END OF SHIFT. PATIENT OTHERWISE STABLE, VS STABLE; WILL CONTINUE TO MONITOR PATIENT.
[2021-11-22] MEDS: HYDROCODONE/APAP 5/325MG TABLET PO PRN ×4 (00:08→18:49)
[2021-11-22 04:00] VITALS: BP 104/65
--- NOTE | 2021-11-22 07:38 | NUR ---
RN CLOSING NOTE PATIENT ASLEEP IN BED. A/OX4. NO S/S OF DISTRESS, BREATHING W/O DIFFICULTY ON ROOM AIR. CARMEL #20 SL INTACT AND PATENT. PATIENT CONTINUED TO DECLINE TELE MONITOR, ALTHOUGH WAS COMPLIANT W/ TAKING VS NEAR END OF SHIFT. SAFETY MEASURES IN PLACE: BED AT LOWEST POSITION, LOCKED, RAILS UP X2, CALL BURNS WITHIN REACH. REPORT GIVEN TO AND ACKNOWLEDGED BY DAY SHIFT RNERIC.
[2021-11-22] MEDS: METOPROLOL SUCCINATE 25 MG TAB.SR.24H PO SCH (08:13)
[2021-11-22] MEDS: ASPIRIN 81 MG TAB.CHEW PO SCH (08:14)
[2021-11-22] MEDS: AMIODARONE HCL 200 MG TABLET PO SCH (08:14)
[2021-11-22] MEDS: PANTOPRAZOLE 40 MG TABLET.DR PO SCH (08:14)
[2021-11-22] MEDS: THIAMINE HCL 100 MG TABLET PO SCH (08:14)
[2021-11-22] MEDS: ISOSORBIDE MONONITRATE (30MG) 30 MG TAB.SR.24H PO SCH (08:14)
[2021-11-22] MEDS: SERTRALINE HCL 50 MG TABLET PO SCH (08:14)
[2021-11-22] MEDS: LISINOPRIL (5MG) 5 MG TABLET PO SCH (08:15)
[2021-11-22] MEDS: APIXABAN 5 MG TABLET PO SCH (08:17)
[2021-11-22] MEDS: LORAZEPAM 0.5 MG TABLET PO PRN ×2 (14:03→20:39)
[2021-11-22] MEDS: ATORVASTATIN 40 MG TABLET PO SCH (18:20)
--- NOTE | 2021-11-22 18:40 | NUR ---
SHIFT SUMMARY VSS, AFEBRILE, PAIN MANAGED WITH NORCO. A/O X4. ABLE TO MAKE NEEDS KNOWN. AMBULATING USING A WALKER WITH SBA, ON RA SATURATING 100%. REFUSING LAB DRAW, TELE AND SCD. EDUCATED ABOUT ITS IMPORTANCE, RISKS/BENEFITS. ATIVAN X1. IV ACCESS ON CARMEL #20 G SL, INTACT AND PATENT. PLAN FOR CT ANGIO HEART WITH DR CUEVA TOMORROW, CONSENT SIGNED. SAFETY MEASURES MAINTAINED. BED IN LOWEST POSITION, BRAKES LOCKED. SIDE RAILS UP X2. CALL LIGHT WITHIN REACH. WILL ENDORSE CONTINUITY OF CARE TO ONCOMING SHIFT.
--- NOTE | 2021-11-22 19:31 | NUR ---
LOCAL FLATBED DRIVER NOTES VSS, AFEBRILE, PAIN MANAGED WITH NORCO. A/O X4. ABLE TO MAKE NEEDS KNOWN. AMBULATING USING A WALKER WITH SBA, ON RA SATURATING 100%. REFUSING LAB DRAW, TELE AND SCD. EDUCATED ABOUT ITS IMPORTANCE, RISKS/BENEFITS. ATIVAN X1. IV ACCESS ON CARMEL #20 G SL, INTACT AND PATENT. PLAN FOR CT ANGIO HEART WITH DR CUEVA TOMORROW, CONSENT SIGNED. SAFETY MEASURES MAINTAINED. BED IN LOWEST POSITION, BRAKES LOCKED. SIDE RAILS UP X2. CALL LIGHT WITHIN REACH. WILL CONTINUE TO MONITOR.
[2021-11-22 20:04] VITALS: BP 112/80
--- NOTE | 2021-11-22 20:41 | NUR ---
RN NOTES PT HAVING ANXIETY REQUESTED ATIVAN PRN ATIVAN ADMISNTERED AND TOLERATED WELL. WILL CONTINUE TO MONITOR.
--- NOTE | 2021-11-22 22:07 | NUR ---
RN NOTES PT REPORTING 8/10 PAIN ON A NUMERIC PAIN SCALE DESPITE PAIN MEDICATION ADMINISTRATION EARLIER TODAY. PAVING INSPECTOR DR ZENDEJAS MADE AWARE RECEIVED NEW ORDER FOR NORCO 10-325MG Q4 HRS ORDER CARRIED OUT. WILL CONTINUE TO MONITOR.
[2021-11-22] MEDS: HYDROCODONE/APAP 10/325MG TABLET PO PRN (22:45)
--- NOTE | 2021-11-22 22:47 | NUR ---
rn notes prn norco given for pain tolerated well. will continue to monitor.
[2021-11-23 00:46] VITALS: BP 123/87
[2021-11-23] MEDS: HYDROCODONE/APAP 10/325MG TABLET PO PRN ×5 (02:49→20:28)
--- NOTE | 2021-11-23 02:50 | NUR ---
rn notes prn norco given for 9/10 pain tolerated well. will continue to monitor.
[2021-11-23 04:57] VITALS: BP 130/88
--- NOTE | 2021-11-23 06:50 | NUR ---
C DEVELOPER NOTES VSS, AFEBRILE, PAIN MANAGED WITH NORCO. A/O X4. ABLE TO MAKE NEEDS KNOWN. AMBULATING USING A WALKER WITH SBA, ON RA SATURATING 100%. REFUSING LAB DRAW, TELE AND SCD. EDUCATED ABOUT ITS IMPORTANCE, RISKS/BENEFITS. ATIVAN X1. IV ACCESS ON CARMEL #20 G SL, INTACT AND PATENT. PLAN FOR CT ANGIO HEART WITH DR CUEVA TODAY, CONSENT SIGNED. SAFETY MEASURES MAINTAINED. BED IN LOWEST POSITION, BRAKES LOCKED. SIDE RAILS UP X2. CALL LIGHT WITHIN REACH. WILL ENDORSE CARE.
[2021-11-23] MEDS: PANTOPRAZOLE 40 MG TABLET.DR PO SCH (07:17)
--- NOTE | 2021-11-23 07:30 | NUR ---
RESEARCH AND DEVELOPMENT ENGINEER OPENING NOTES: RECEIVED PATIENT IN BED AWAKE, A/O X4. ABLE TO VERBALIZED NEEDS. NO SOB OR CARDIAC DISTRESS NOTED, VS WNL. REFUSED TELE/TEACHERS' ASSISTANT. WITH CARMEL G#20 SL PATENT AND INTACT. KEPT RESTED AND COMFORTABLE. SAFETY PRECAUTIONS MAINTAINED: BED IN LOWEST AND LOCKED POSITION, SIDE RAILS UP X 2. CALL LIGHT IN EASY REACH FOR HELP/ASSISTANCE. WILL MONITOR ACCORDINGLY.
[2021-11-23 08:00] VITALS: BP 132/97
[2021-11-23] MEDS: THIAMINE HCL 100 MG TABLET PO SCH (08:23)
[2021-11-23] MEDS: ISOSORBIDE MONONITRATE (30MG) 30 MG TAB.SR.24H PO SCH (08:23)
[2021-11-23] MEDS: SERTRALINE HCL 50 MG TABLET PO SCH (08:23)
[2021-11-23] MEDS: LISINOPRIL (5MG) 5 MG TABLET PO SCH (08:24)
[2021-11-23] MEDS: ASPIRIN 81 MG TAB.CHEW PO SCH (08:24)
[2021-11-23] MEDS: ACETAMINOPHEN 325 MG TABLET PO PRN (08:25)
[2021-11-23] MEDS: AMIODARONE HCL 200 MG TABLET PO SCH (08:32)
[2021-11-23] MEDS: METOPROLOL SUCCINATE 25 MG TAB.SR.24H PO SCH (08:32)
[2021-11-23 12:00] VITALS: BP 143/84
--- NOTE | 2021-11-23 12:00 | NUR ---
RN NOTES: PATIENT REFUSED BODY CHECK X 3. EXPLAINED THE RISK AND BENEFITS.
--- NOTE | 2021-11-23 12:50 | NUR ---
RN NOTES: PATIENT PULLED OUT IV. UNABLE TO INSERT IV DUE TO SMALL VEINS. MIDLINE INSERTION ORDERED.
[2021-11-23] MEDS: LORAZEPAM 0.5 MG TABLET PO PRN ×2 (14:57→22:19)
[2021-11-23 16:00] VITALS: BP 118/74
[2021-11-23] MEDS: ATORVASTATIN 40 MG TABLET PO SCH (17:57)
--- NOTE | 2021-11-23 18:16 | NUR ---
RN NOTES: ASKED PATIENT FOR BODY ASSESSMENT, PATIENT REFUSED.
--- NOTE | 2021-11-23 18:46 | NUR ---
WIRE WRAPPING MACHINE OPERATOR CLOSING NOTES: RECEIVED PATIENT IN BED AWAKE, A/O X4. ABLE TO VERBALIZED NEEDS. NO SOB OR CARDIAC DISTRESS NOTED, VS WNL. REFUSED TELE/MANAGER OF PROGRAM. NO IV ACCESS AT THIS TIME. ON PAIN MANAGEMENT ORDERED. KEPT RESTED AND COMFORTABLE. SAFETY PRECAUTIONS MAINTAINED: BED IN LOWEST AND LOCKED POSITION, SIDE RAILS UP X 2. CALL LIGHT IN EASY REACH FOR HELP/ASSISTANCE. WILL MONITOR ACCORDINGLY. WILL ENDORSED TO NEXT SHIFT FOR CONTINUITY OF CARE.
--- NOTE | 2021-11-23 19:56 | NUR ---
APPOINTMENT MANAGER OPENING NOTES: RECEIVED PATIENT AWAKE IN BED, BED IN LOW POSITION, CALL LIGHTS WITHIN REACH, NO COMPLAIN OF PAIN AND DISCOMFORT AT THIS TIME, PATIENT IS A/OX4 ABLE TO MAKE NEEDS KNOWN, ON TELE MONITORING BUT REFUSED TELE MONITOR , WITH LFA MID LINE SL, PATIENT REFUSED BLOOD PRESSURE MONITORING,REFUSED SKIN ASSESSMENT, PATIENT KEPT CLEAN AND DRY ALL NEED MET WILL CONTINUE TO MONITOR.
[2021-11-24] MEDS: HYDROCODONE/APAP 10/325MG TABLET PO PRN ×6 (00:28→22:40)
--- NOTE | 2021-11-24 07:01 | NUR ---
TESTING PROJECTS ADMINISTRATOR CLOSING NOTES: PATIENT SLEEP IN BED COMFORTABLY AROUSABLE TO VERBAL STIMULI, BED IN LOW POSITION CALL LIGHTS WITHIN REACH, NO COMPLAIN OF PAIN AND DISCOMFORT AT THIS TIME, ON PAIN MANAGEMENT, ON TELE MONITORING REFUSED, TELE MONITOR-, REFUSED V/S EXPLAIN RISK AND BENEFITS BUT REFUSED, JELLY MCALLISTER, CN WAS AWARE, ON NPO FOR CT ANGIO IN AM, PATIENT KEPT CLEAN AND DRY ALL NEEDS MET ENDORSE TO INCOMING SHIFT.
--- NOTE | 2021-11-24 07:52 | NUR ---
UMBRELLA FRAME MAKER OPENING NOTES: PATIENT RESTING IN BED, AWAKE. PATIENT IS A/O X4, ABLE TO MAKE NEEDS KNOWN AND AT THIS TIME REFUSES VITAL SIGNS WITH THE GLOVE SEWER. PATIENT IS ON ROOM AIR; BREATHING EVEN AND INTACT; NO SOB NOTED. NO COMPLAINS OF CHEST PAIN. REFUSES TELE MONITORING. KIET MIDLINE PRESENT AND INTACT. SAFETY PRECAUTIONS IN PLACE; BED IN LOW POSITION AND LOCKED, RAILS UPX2, CALL LIGHT WITHIN REACH. WILL CONTINUE TO MONITOR PATIENT.
[2021-11-24 08:00] VITALS: BP 151/90
[2021-11-24] MEDS: SERTRALINE HCL 50 MG TABLET PO SCH (08:15)
[2021-11-24] MEDS: THIAMINE HCL 100 MG TABLET PO SCH (08:16)
[2021-11-24] MEDS: PANTOPRAZOLE 40 MG TABLET.DR PO SCH (08:16)
[2021-11-24] MEDS: ASPIRIN 81 MG TAB.CHEW PO SCH (08:16)
[2021-11-24] MEDS: AMIODARONE HCL 200 MG TABLET PO SCH (08:17)
[2021-11-24] MEDS: ISOSORBIDE MONONITRATE (30MG) 30 MG TAB.SR.24H PO SCH (08:18)
[2021-11-24] MEDS: LISINOPRIL (5MG) 5 MG TABLET PO SCH (08:18)
[2021-11-24] MEDS: METOPROLOL SUCCINATE 25 MG TAB.SR.24H PO SCH (08:18)
--- NOTE | 2021-11-24 09:15 | NUR ---
ELECTRONIC PUBLISHER NOTES PATIENT COMPLAINING OF HIP PAIN 7 OUT OF 10. REQUESTING PAIN MEDICATION. PRN NORCO 10/325 ADMINISTERED. WILL REASSESS.
[2021-11-24] MEDS: LORAZEPAM 0.5 MG TABLET PO PRN ×2 (10:25→20:24)
--- NOTE | 2021-11-24 13:15 | NUR ---
EGG GRADER NOTES PATIENT COMPLAINING OF HIP PAIN 8 OUT OF 10. REQUESTING PAIN MEDICATION. PRN NORCO 10/325 ADMINISTERED. WILL REASSESS.
[2021-11-24] MEDS ORDERED: CT SWABBABLE VALVE TRANS SET 1 EA INFUS.SET MC ONE (15:54)
[2021-11-24] MEDS ORDERED: IOHEXOL-350 100 ML VIAL IV ONE (15:54)
[2021-11-24] MEDS ORDERED: IV NS 0.9% 250 ML IV ONE (15:54)
[2021-11-24 16:00] VITALS: BP 111/80
[2021-11-24] MEDS: METOPROLOL TARTRATE INJ 5 MG/5 ML AMPUL IVP PRN ×2 (16:05→16:10)
[2021-11-24] MEDS ORDERED: METOPROLOL TARTRATE INJ 5 MG/5 ML AMPUL ONE (16:06)
--- NOTE | 2021-11-24 16:48 | NUR ---
CTA NOTE PATIENT AOX3, ABLE TO MAKE NEEDS KNOWN. AWARE OF CTA ORDERED BY MD. CONSENT NOTED IN CHART. DENIES ANY DISCOMFORT AT THIS TIME. PATIENT STATED WITH ALLERGY TO PCN ONLY AND OKAY TO TAKE NITRO. KEATON SENIOR LEAD PROJECT MANAGER VERIFIED ALLERGY WITH PATIENT. PATIENT JAX PROCEDURE WELL. REPORT GIVEN TO SHEEBA SHEIKH FOR GILBERTO.
[2021-11-24] MEDS ORDERED: IV NS 0.9% 500 ML IV PRN (17:00)
[2021-11-24] MEDS ORDERED: NITROGLYCERIN 0.4 MG/TAB BOTTLE SL ONE (17:00)
[2021-11-24] MEDS: ATORVASTATIN 40 MG TABLET PO SCH (17:22)
--- NOTE | 2021-11-24 17:50 | NUR ---
SKIDWAY MAN NOTES PATIENT COMPLAINING OF HIP PAIN 7 OUT OF 10. REQUESTING PAIN MEDICATION. PRN NORCO 10/325 ADMINISTERED. WILL REASSESS.
--- NOTE | 2021-11-24 18:47 | NUR ---
ELECTROTYPE FINISHER CLOSING NOTES: PATIENT RESTING IN BED, AWAKE, A/O X4, ABLE TO MAKE NEEDS KNOWN. PATIENT IS ON ROOM AIR; BREATHING EVEN AND UNLABORED; NO SOB NOTED. NO COMPLAINS OF PAIN. STILL REFUSES TELE MONITORING. KIET MIDLINE PRESENT AND INTACT. ALL NEEDS ATTENDED DURING THE DAY. SAFETY PRECAUTIONS IN PLACE; BED IN LOW POSITION AND LOCKED, RAILS UPX2, CALL LIGHT WITHIN REACH. WILL ENDORSE TO AUTO LOCATOR NURSE FOR GILBERTO.
--- NOTE | 2021-11-24 19:46 | NUR ---
LABORER MARINE TERMINAL OPENING NOTE RECEIVED PATIENT A/OX4. NO S/S OF APPARENT DISTRESS ON ROOM AIR. NO C/O PAIN AT THIS TIME. PATIENT REFUSES TO BE ON CAR CARDER-- ON STANDBY. NO FLUIDS RUNNING AT THIS TIME. SAFETY IN PLACE. ORIENTED AND ENCOURAGED WITH THE USE OF ALL LIGHT. WILL CONTINUE WITH PATIENT'S PLAN OF CARE.
--- NOTE | 2021-11-24 20:14 | NUR ---
HOT SEALING MACHINE OPERATOR NOTE PATIENT REFUSING V/S, PERSONALLY ASKED THE PATIENT IF i CAN TAKE IT SINCE HE REFUSED INSPECTOR AUTOMATIC TYPEWRITER. PER PATIENT "NO, NOT RIGHT NOW" "MAYBE LATER" WILL TRY AGAIN LATER PATIENT AGREES.
--- NOTE | 2021-11-24 21:24 | NUR ---
LITERACY CONSULTANT NOTE PATIENT ADAMANTLY REFUSE 2000 V/S. ASKED PATIENT AGAIN PER PATIENT "NOT RIGHT NOW, I'M TRYING TO REST" WILL CONTINUE TO MONITOR.
[2021-11-24 22:51] VITALS: BP 154/75
--- NOTE | 2021-11-24 22:52 | NUR ---
POLICE DETECTIVE NOTE PATIENT MADE AWARE OF NPO ORDER BY MIDNIGHT. PATIENT UNHAPPY AND PER PATIENT "THEY CANNOT LET ME. FAR I'M CONCERNED I ALREADY TOOK ALL THE TEST THIS MORNING" "THE DOCTOR CAN COME TALK TO ME IF HE WANTS".
--- NOTE | 2021-11-24 22:54 | NUR ---
V/S 154/75, HR- 70, SATURATION 98%, RR-20, T-97.8. PATIENT C/O 8/10 PAIN ON THE HIPS AND BACK. MEDICATED. WILL CONTINUE TO MONITOR.
--- NOTE | 2021-11-25 00:59 | NUR ---
ACTIMIZE ARCHITECT NOTE PATIENT ADAMANTLY REFUSED V/S
[2021-11-25] MEDS: LORAZEPAM 0.5 MG TABLET PO PRN ×3 (01:50→23:49)
--- NOTE | 2021-11-25 01:53 | NUR ---
JAVA MANAGER NOTE PATIENT REQUESTING ATIVAN, BECOMIG VERY RESTLESS AND ANGRY. GIVEN AT THIS TIME.
[2021-11-25] MEDS: HYDROCODONE/APAP 10/325MG TABLET PO PRN ×6 (02:52→23:03)
--- NOTE | 2021-11-25 02:55 | NUR ---
NON- COMPLIANT PATIENT DOES NOT WANT TO COMPLY WITH NPO STATUS. CHARGE MADE AWARE, PER CHARGE NURSE LIBAN JUST DOCUMENT. C/O 01/27 PAIN ON HIS HIPS AND BACK THAT IS ONLY RELIEVED WITH MEDICATION. GIVEN NORCO-10 AT THIS TIME. WILL RE-ASSESS.
--- NOTE | 2021-11-25 04:30 | NUR ---
INFORMATION RECEPTIONIST NOTE REFUSED 0400 AM V/S. PER PATIENT "DON'T BOTHER ME!"
--- NOTE | 2021-11-25 05:42 | NUR ---
ACTIVITIES COORDINATOR NOTE- REFUSED LAB PATIENT REFUSED LAB DRAW AT THIS TIME. PASSIVE AND ANGRY ABOUT PATIENT TEACHING.
--- NOTE | 2021-11-25 07:30 | NUR ---
CREW FOREMAN NOTE PATIENT CONTINUES TO BE NON-COMPLIANT. NEEDS ATTENDED. GAVE REPORT TO MARIA L FOR CONTINUITY OF CARE.
--- NOTE | 2021-11-25 07:31 | NUR ---
RN OPENING NOTES RECEIVED PATIENT IN BED, AWAKE, A/O X4, VERBALLY RESPONSIVE. NO SIGNS OF ACUTE DISTRESS NOTED. ON ROOM AIR, TOLERATING WELL. NO SOB NOTED, BREATHING EVEN AND UNLABORED. DENIES ANY PAIN AT THIS TIME. WITH IV ACCESS ON RIGHT UPPER ARM MIDLINE, INTACT AND PATENT, SALINE LOCKED. PATIENT ON NPO, PER NOC REPORT, PATIENT NON-COMPLIANT. WILL CONTINUE TO MONITOR PATIENT AND EDUCATE REGARDING COMPLIANCE WITH TREATMENT. SAFETY MEASURE IN PLACE. BED IN LOWEST AND LOCKED POSITION, SIDE RAILS UP X2, CALL LIGHT PLACED WITHIN EASY REACH.
[2021-11-25] MEDS: PANTOPRAZOLE 40 MG TABLET.DR PO SCH (09:11)
[2021-11-25] MEDS: THIAMINE HCL 100 MG TABLET PO SCH (09:11)
[2021-11-25] MEDS: ASPIRIN 81 MG TAB.CHEW PO SCH (09:11)
[2021-11-25] MEDS: AMIODARONE HCL 200 MG TABLET PO SCH (09:11)
[2021-11-25] MEDS: SERTRALINE HCL 50 MG TABLET PO SCH (09:11)
[2021-11-25] MEDS: METOPROLOL SUCCINATE 25 MG TAB.SR.24H PO SCH (09:12)
[2021-11-25] MEDS: LISINOPRIL (5MG) 5 MG TABLET PO SCH (09:12)
[2021-11-25] MEDS: ISOSORBIDE MONONITRATE (30MG) 30 MG TAB.SR.24H PO SCH (09:12)
--- NOTE | 2021-11-25 16:55 | NUR ---
RN NOTES PATIENT REQUEST ATIVAN FOR ANXIETY, MED GIVEN ORDERED.
[2021-11-25] MEDS: ATORVASTATIN 40 MG TABLET PO SCH (17:02)
--- NOTE | 2021-11-25 18:51 | NUR ---
RN CLOSING NOTES PATIENT IN BED, AWAKE, A/O X4, VERBALLY RESPONSIVE. NO SIGNS OF ACUTE DISTRESS NOTED. STABLE ON ROOM AIR, NO SOB NOTED, BREATHING EVEN AND UNLABORED. MEDICATED FOR PAIN NEEDED. IV ACCESS ON RIGHT UPPER ARM MIDLINE, INTACT AND PATENT, SALINE LOCKED. PATIENT WITH EPISODES OF NON-COMPLIANCE WITH CARE, EDUCATED REGARDING COMPLIANCE WITH TREATMENT. SAFETY MEASURE IN PLACE. BED IN LOWEST AND LOCKED POSITION, SIDE RAILS UP X2, CALL LIGHT PLACED WITHIN EASY REACH. WILL ENDORSE TO NEXT SHIFT FOR CONTINUITY OF CARE.
--- NOTE | 2021-11-25 20:11 | NUR ---
HORTICULTURAL WORKER OPENING NOTE RECEIVED PATIENT A/OX4. NO S/S OF APPARENT DISTRESS ON ROOM AIR. NO C/O PAIN AT THIS TIME. PATIENT REFUSES TO BE ON CLEARANCE COORDINATOR-- ON STANDBY. NO FLUIDS RUNNING AT THIS TIME. SAFETY IN PLACE. ORIENTED AND ENCOURAGED WITH THE USE OF ALL LIGHT. WILL CONTINUE WITH PATIENT'S PLAN OF CARE.
--- NOTE | 2021-11-25 20:34 | NUR ---
FISHER SEAL NOTE PATIENT REFUSED TO TALK ON THE PHONE WITH WOUND NURSE DOCTOR CUEVA. EVEN CHARGE NURSE TEDDY TALKED WITH THE PATIENT AND TO QUOTE "I ALREADY SAID NO!" "I DO NOT WANT TO TALK TO ANY DOCTOR! "NO!" "CAN YOU GUYS UNDERSTAND LUXEMBOURGER?!". DOCTOR CUEVA MADE AWARE.
--- NOTE | 2021-11-25 23:53 | NUR ---
BAKERY DECORATOR NOTE PATIENT REQUESTING FOR ATIVAN. V/S FOLLOWS: 118/71, HR-69, SPO2 96%, T-97.8. GIVEN PRN.
[2021-11-25 23:55] VITALS: BP 118/71
[2021-11-26] MEDS: HYDROCODONE/APAP 10/325MG TABLET PO PRN ×5 (03:25→22:58)
--- NOTE | 2021-11-26 07:17 | NUR ---
CHAIN HOIST OPERATOR CLOSING REPORT GIVEN TO MARCELA FOR CONTINUITY OF CARE. PATIENT'S NEEDS ATTENDED.
--- NOTE | 2021-11-26 07:19 | NUR ---
DRESSAGE INSTRUCTOR OPENING NOTE RECEIVED PATIENT IN BED, AWAKE, A/O X4, VERBALLY RESPONSIVE. PATIENT ON ROOM AIR WITH NO SIGNS OF ACUTE DISTRESS NOTED. WITH IV ACCESS ON THE LEFT UPPER ARM MIDLINE, INTACT AND PATENT, SALINE LOCKED. PATIENT ENDORSED TO BE NON-COMPLIANT. WILL CONTINUE TO MONITOR PATIENT AND EDUCATE REGARDING COMPLIANCE WITH TREATMENT. SAFETY MEASURE IN PLACE. BED IN LOWEST AND LOCKED POSITION, SIDE RAILS UP X2, CALL LIGHT PLACED WITHIN EASY REACH. WILL CONTINUE TO MONITOR
[2021-11-26] MEDS: PANTOPRAZOLE 40 MG TABLET.DR PO SCH (07:30)
[2021-11-26 08:00] VITALS: BP 103/60
--- NOTE | 2021-11-26 09:05 | NUR ---
TOP DYEING MACHINE LOADER NOTE PATIENT REFUSED BP CHECK, MEDICATION AND BLOOD DRAW AT THIS TIME. HEALTH TEACHING DONE REGARDING POSSIBLE REPERCUSSIONS OF ACTION. PATIENT SAID HE JUST WANTS TO REST NOW. PROVIDED WITH CALM AND QUIET ENVIRONMENT.
[2021-11-26] MEDS: ASPIRIN 81 MG TAB.CHEW PO SCH (10:46)
[2021-11-26] MEDS: AMIODARONE HCL 200 MG TABLET PO SCH (10:46)
[2021-11-26] MEDS: METOPROLOL SUCCINATE 25 MG TAB.SR.24H PO SCH (10:47)
[2021-11-26] MEDS: ISOSORBIDE MONONITRATE (30MG) 30 MG TAB.SR.24H PO SCH (10:47)
[2021-11-26] MEDS: LISINOPRIL (5MG) 5 MG TABLET PO SCH (10:47)
[2021-11-26] MEDS: SERTRALINE HCL 50 MG TABLET PO SCH (10:47)
[2021-11-26] MEDS: THIAMINE HCL 100 MG TABLET PO SCH (10:47)
--- NOTE | 2021-11-26 12:29 | NUR ---
SS consult: SS consult requested for homelessness. The pt. is a 76 year old male who was admitted to Med Surg due to chest pain. SW met with pt. at bedside. The pt. si alert & oriented x 4 and makes avoidant eye contact. Pt. stated he did not want to speak with SW. SW Notified pt. that SW is to assist pt. with discharge planning. Pt. stated that he has a car parked outside. Pt. refused to answer if he is currently experiencing homelessness or regarding a support system. Pt. stated that he is not feeling well and if SW can come back later. Noted. SW will follow up at a later time.
[2021-11-26] MEDS: ATORVASTATIN 40 MG TABLET PO SCH (17:02)
[2021-11-26] MEDS: LORAZEPAM 0.5 MG TABLET PO PRN (17:03)
--- NOTE | 2021-11-26 18:39 | NUR ---
ARCHITECT CLOSING NOTE PATIENT REMAINS IN BED & AWAKE. MIDLINE IV ACCESS ON THE KIET REMAINS INTACT AND PATENT, SALINE LOCKED. PATIENT CONTINUES TO BE NON COMPLIANT WITH CARE INCLUDING LAB DRAWS AND VITAL SIGN CHECKS. REQUESTED PRN NORCO & ATIVAN ON SHIFT. ADMINISTERED PER ORDER. MEDICATIONS EFFECTIVE. WILL CONTINUE TO MONITOR AND EDUCATE PATIENT REGARDING COMPLIANCE WITH TREATMENT. SAFETY MEASURES IN PLACE. BED IN LOWEST AND LOCKED POSITION, SIDE RAILS UP X2, CALL LIGHT PLACED WITHIN EASY REACH. WILL CONTINUE TO MONITOR
--- NOTE | 2021-11-26 19:35 | NUR ---
RN NOTES RECEIVED PATIENT AWAKE ON BED, A/OX4, REFUSED VITAL SIGN, REFUSED SKIN ASSESSMENT , REFUSED HEART MONITOR, CALL LIGHT WITHIN REACH, [id number], WILL CONTINUE TO MONITOR
[2021-11-26] MEDS: ACETAMINOPHEN 325 MG TABLET PO PRN (20:33)
[2021-11-26] MEDS: ZOLPIDEM TARTRATE 5 MG TABLET PO PRN (20:33)
--- NOTE | 2021-11-26 20:36 | NUR ---
RN NOTES PT. ASKED FOR SLEEPING PILL AND TYLENOL, AMBIEN 5 MG PO AND TYLENOL 650MG PO GIVEN ORDERED
--- NOTE | 2021-11-26 23:00 | NUR ---
RN NOTES COMPLAINED OF GENERALIZED PAIN -NOROC 10/325MG PO GIVEN ORDERED.V/S STABLE
[2021-11-27] VITALS: BP 119/64
[2021-11-27] MEDS: HYDROCODONE/APAP 10/325MG TABLET PO PRN ×5 (02:58→19:38)
--- NOTE | 2021-11-27 05:00 | NUR ---
RN NOTES PT. REFUSED LAB WORKS AND REFUSED TO LISTEN TO MY EXPLANATION
--- NOTE | 2021-11-27 07:00 | NUR ---
RN NOTES pt. complained of generalized pain - Robson 10/325mg po given as ordered
--- NOTE | 2021-11-27 07:20 | NUR ---
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
[2021-11-27] MEDS: PANTOPRAZOLE 40 MG TABLET.DR PO SCH (07:30)
[2021-11-27] MEDS: SERTRALINE HCL 50 MG TABLET PO SCH (08:22)
[2021-11-27] MEDS: ASPIRIN 81 MG TAB.CHEW PO SCH (08:22)
[2021-11-27] MEDS: THIAMINE HCL 100 MG TABLET PO SCH (08:22)
--- NOTE | 2021-11-27 08:35 | NUR ---
RN NOTES PATIENT EATING BREAKFAST AT THIS TIME. ABLE TO AMBULATE TO BATHROOM W/ STEADY GAIT. SELECTIVELY TOOK MEDICATIONS TODAY; UNABLE TO GIVE BP MEDS PATIENT REFUSED VS TO BE TAKEN. EXPLAINED IMPORTANCE OF VS AND MED COMPLIANCE TO PATIENT BUT INSISTED ON REFUSING. SAFETY MEASURES IN PLACE.
[2021-11-27] MEDS: ISOSORBIDE MONONITRATE (30MG) 30 MG TAB.SR.24H PO SCH (08:52)
[2021-11-27] MEDS: METOPROLOL SUCCINATE 25 MG TAB.SR.24H PO SCH (08:52)
[2021-11-27] MEDS: AMIODARONE HCL 200 MG TABLET PO SCH (08:52)
[2021-11-27] MEDS: LISINOPRIL (5MG) 5 MG TABLET PO SCH (08:52)
--- NOTE | 2021-11-27 11:23 | NUR ---
RN NOTES PATIENT REFUSED BLOOD DRAW FOR LAB TODAY.
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
[2021-11-27] MEDS: LORAZEPAM 0.5 MG TABLET PO PRN (17:04)
[2021-11-27] MEDS: ATORVASTATIN 40 MG TABLET PO SCH (17:04)
--- NOTE | 2021-11-27 18:46 | NUR ---
RN NOTES AFTERNOON MEDS GIVEN TO PATIENT; ASSISTED W/ ADL'S TOLERATED. NOT IN ACUTE DISTRESS. SAFETY MEASURES MAINTAINED.
--- NOTE | 2021-11-27 19:36 | NUR ---
RN NOTES PT COMPLAINED OF PAIN LL LEG 01/27.PRN NORCO 10/325 MG GIVEN.NO SIGN A/R NOTED.
--- NOTE | 2021-11-27 19:45 | NUR ---
POCKET CLOSER OPENING NOTE RECEIVED PATIENT IN BEB AAOX4. ON ROOM AIR JAX WELL NO SOB/DISTRESS NOTED.WITH IV ACCESS ON THE LEFT UPPER ARM MIDLINE, INTACT AND PATENT, SALINE LOCKED. PATIENT ENDORSED TO BE NON-COMPLIANT FOR ROUTINE MEDS.ADL.HE WANTS ONLY PAIN MEDS.SAFETY MEASURE IN PLACE. BED IN LOWEST AND LOCKED POSITION, SIDE RAILS UP X2, CALL LIGHT PLACED WITHIN EASY REACH. WILL CONTINUE TO MONITOR
[2021-11-27] MEDS: ZOLPIDEM TARTRATE 5 MG TABLET PO PRN (22:08)
--- NOTE | 2021-11-27 22:09 | NUR ---
RN NOTES PATIENT COMPLAINE CANT GET TO SLEEP.PRN AMBIEN 5MG WAS GIVEN NO A/R NOTED.
[2021-11-28] MEDS: HYDROCODONE/APAP 10/325MG TABLET PO PRN ×3 (02:02→13:49)
--- NOTE | 2021-11-28 02:04 | NUR ---
RN NOTES PT COMPLAINED LEFT LEG AND GENERALIZE BODY PAIN 12/27.PRN NORCO 10/325MG PO.NO SIGN A/R NOTED.
--- NOTE | 2021-11-28 06:28 | NUR ---
DOCTOR OF NURSE ANESTHESIA PRACTICE CLOSING NOTE RECEIVED PATIENT IN BEB AAOX4. ON ROOM AIR JAX WELL NO SOB/DISTRESS NOTED.WITH IV ACCESS ON THE LEFT UPPER ARM MIDLINE, INTACT AND PATENT, SALINE LOCKED.PT WANTS ONLY PAIN MEDS.PT REFUSED ROUTINE ADL EXPLAINED THE BENEFITS X3. SAFETY MEASURE IN PLACE. BED IN LOWEST AND LOCKED POSITION, SIDE RAILS UP X2, CALL LIGHT PLACED WITHIN EASY REACH. WILL ENDORSED TO NEXT SHIFT.
--- NOTE | 2021-11-28 07:20 | NUR ---
RN OPENING NOTES RECEIVED PATIENT IN BED, AWAKE, VERBALLY RESPONSIVE. NO SIGNS OF ACUTE DISTRESS NOTED. STABLE ON ROOM AIR. NO SOB NOTED, BREATHING EVEN AND UNLABORED. DENIES ANY PAIN AT THIS TIME. WITH IV ACCESS ON LEFT UPPER ARM MIDLINE, INTACT AND PATENT, SALINE LOCKED. WILL CONTINUE TO MONITOR PATIENT. SAFETY MEASURE IN PLACE. BED IN LOWEST AND LOCKED POSITION, SIDE RAILS UP X2, CALL LIGHT PLACED WITHIN EASY REACH.
--- NOTE | 2021-11-28 07:30 | NUR ---
RN NOTES PATIENT REFUSED VITAL SIGNS.
[2021-11-28] MEDS: AMIODARONE HCL 200 MG TABLET PO SCH (08:33)
[2021-11-28] MEDS: ASPIRIN 81 MG TAB.CHEW PO SCH (08:33)
[2021-11-28] MEDS: METOPROLOL SUCCINATE 25 MG TAB.SR.24H PO SCH (08:33)
[2021-11-28] MEDS: LISINOPRIL (5MG) 5 MG TABLET PO SCH (08:33)
[2021-11-28] MEDS: PANTOPRAZOLE 40 MG TABLET.DR PO SCH (08:33)
[2021-11-28] MEDS: THIAMINE HCL 100 MG TABLET PO SCH (08:33)
[2021-11-28] MEDS: SERTRALINE HCL 50 MG TABLET PO SCH (08:33)
[2021-11-28] MEDS: ISOSORBIDE MONONITRATE (30MG) 30 MG TAB.SR.24H PO SCH (08:33)
--- NOTE | 2021-11-28 14:00 | NUR ---
RN NOTE PATIENT REFUSED TO BE DISCHARGE TO [facility]. PER PATIENT HE WILL GO HOME TO HER DAUGHTER LORI IN [place] AT @1530. HE SAID HE HAS A CAR AND WILL DRIVE HIMSELF THERE. LOREN RICE MADE AWARE. DR. PETTY MADE AWARE.
--- NOTE | 2021-11-28 16:10 | NUR ---
POLYMER SPECIALIST NOTE PATIENT DISCHARGED IN STABLE CONDITION. REMAINS A/O X4, VERBALLY RESPONSIVE, ABLE TO MAKE NEEDS KNOWN. IV ACCESS REMOVED, NO BLEEDING NOTED, COVERED WITH PRESSURE DRESSING. ALL BELONGINGS ACCOUNTED FOR. EXITCARE FOLDER GIVEN TO PATIENT. DISCHARGE INSTRUCTIONS GIVEN TO PATIENT WITH VERBALIZATION OF UNDERSTANDING. PATIENT LEFT UNIT @ 1605, ACCOMPANIED BY SECURITY TO THE PETE AND SHEEBA DIAMOND VIA W/C. CN AWARE OF DISCHARGE.
== END 2021-11-28 16:05 | disposition home or self-care (01) | DRG 280 ==
LOC: ER 18:27 → TELE 21:35
PROVIDERS: ADMIT Student in an Organized Health Care Education/Training Program
PROC: 05HB33Z Insertion of Infusion Device into Right Basilic Vein, Percutaneous Approach (ICD-10-PCS; principal; 2021-11-23)
DX: I21.4 Non-ST elevation (NSTEMI) myocardial infarction (principal); E43 Unspecified severe protein-calorie malnutrition; D68.59 Other primary thrombophilia; I69.354 Hemiplegia and hemiparesis following cerebral infarction affecting left non-dominant side; R64 Cachexia; Z68.1 Body mass index [BMI] 19.9 or less, adult; K86.0 Alcohol-induced chronic pancreatitis; J98.11 Atelectasis; Z20.822 Contact with and (suspected) exposure to COVID-19; I11.0 Hypertensive heart disease with heart failure; E78.5 Hyperlipidemia, unspecified; I25.10 Atherosclerotic heart disease of native coronary artery without angina pectoris; I25.2 Old myocardial infarction; Z95.0 Presence of cardiac pacemaker; Z59.02 Unsheltered homelessness; I50.9 Heart failure, unspecified; Z88.0 Allergy status to penicillin; Z88.8 Allergy status to other drugs, medicaments and biological substances; Z79.01 Long term (current) use of anticoagulants; Z79.82 Long term (current) use of aspirin; Z79.899 Other long term (current) drug therapy; Z96.649 Presence of unspecified artificial hip joint; F17.290 Nicotine dependence, other tobacco product, uncomplicated; I49.5 Sick sinus syndrome; F10.10 Alcohol abuse, uncomplicated; Y90.9 Presence of alcohol in blood, level not specified; E88.09 Other disorders of plasma-protein metabolism, not elsewhere classified; D63.8 Anemia in other chronic diseases classified elsewhere; I48.0 Paroxysmal atrial fibrillation; I70.0 Atherosclerosis of aorta
CPT/HCPCS: 36410; 36415; 71045-TC; 75574; 80048-TC; 84484-TC; 85025-TC; 93307-TC; 97116-TC; 97530-TC; C9803; G0378; J3490; J7050; Q9967